=== PATIENT | female | born 1970 | race Caucasian/White ===

== ENCOUNTER 2017-02-22 14:16 | Emergency (ER) | payer OTHER ==
[~2017-02-22] VITALS: Ht 167.6 cm; Wt 116.6 kg
[~2017-02-22 14:16] MED LIST: CLIN1CAP5 PO; MMW SSP
[2017-02-22 14:25] VITALS: BP 166/81; PULSE 89; RESP 16; TEMP 97.2; O2SAT 97
[2017-02-22] MEDS ORDERED: MORPHINE SULFATE 4 MG/ML INJ IV PUSH ONE (18:30)
[2017-02-22] MEDS ORDERED: SODIUM CHLORIDE 0.9% FLUSH 10 ML FLUSH IV FLUSH PRN (18:30)
--- NOTE | 2017-02-22 18:31 | PD ---
HPI Chief Complaint: Abdominal Pain Time Seen by Provider: 17:55 Travel History International Travel<30 days: No Contact w/Intl Traveler<30days: No Traveled to known affect area: No History of Present Illness HPI 46yo F with PMH of endometriosis s/p partial hysterectomy presents to the ED with c/o right lower abdominal pain since 1:30pm today. Said it was sharp and then less sharp but constant and nonradiating. Has history of kidney stone years ago. Denies any fever, chest pain, sob, n/v, dysuria, hematuria, vaginal bleeding or discharge, focal weakness or numbness. PFSH Past Medical History Atrial Fibrillation: No Blood Disorders: No Cerebrovascular Accident: No Diabetes: No Diminished Hearing: No Gastrointestinal Disorders: No Immune Disorder: No Migraines: Yes Myocardial Infarction: No Renal Failure: No Seizures: No Ulcer: No Past Surgical History Gynecologic Surgery: Yes (PARTIAL HYSTERECTOMY) Hysterectomy: Yes Social History Alcohol Use: Yes (OCCAS) Tobacco Use: Yes (1/2 PPD) Substance Use: No Allergies-Medications (Allergen,Severity, Reaction): Coded Allergies: No Known Allergies (Verified Adverse Reaction, Unknown, 02/22/17) Reported Meds & Prescriptions Reported Meds & Active Scripts Active Cipro (Ciprofloxacin HCl) 500 Mg Tab 500 Mg PO BID 7 Days Flagyl (Metronidazole) 500 Mg Tab 500 Mg PO TID 7 Days Review of Systems Except as stated in HPI: all other systems reviewed are Neg Physical Exam Narrative GENERAL: 46yo F in mild distress. SKIN: Focused skin assessment warm/dry. HEAD: Atraumatic. Normocephalic. EYES: Pupils equal and round. No scleral icterus. No injection or drainage. CARDIOVASCULAR: Regular rate and rhythm. No murmur appreciated. RESPIRATORY: No accessory muscle use. Clear to auscultation. Breath sounds equal bilaterally. GASTROINTESTINAL: Abdomen soft, +RLQ ttp. No rebound tenderness or guarding. MUSCULOSKELETAL: No obvious deformities. No clubbing. No cyanosis. No edema. NEUROLOGICAL: Awake and alert. No obvious cranial nerve deficits. Motor grossly within normal limits. Normal speech. PSYCHIATRIC: Appropriate mood and affect; insight and judgment normal. Data Data Last Documented VS Vital Signs Date Time Temp Pulse Resp B/P (MAP) Pulse Ox O2 Delivery O2 Flow Rate FiO2 02/22/17 23:03 82 18 97 02/22/17 23:01 Room Air 02/22/17 14:25 97.2 Orders Orders Complete Blood Count With Diff (02/22/17 18:24) Comprehensive Metabolic Panel (02/22/17 18:24) Lipase (02/22/17 18:24) Prothrombin Time / Inr (Pt) (02/22/17 18:24) Act Partial Throm Time (Ptt) (02/22/17 18:24) Urinalysis - C+S If Indicated (02/22/17 18:24) Ct Abd/Pel W Iv Contrast(Rout) (02/22/17 18:24) Iv Access Insert/Monitor (02/22/17 18:24) Ecg Monitoring (02/22/17 18:24) Oximetry (02/22/17 18:24) Sodium Chloride 0.9% Flush (Ns Flush) (02/22/17 18:30) Ed Urine Pregnancytest Poc (02/22/17 18:24) Morphine Inj (Morphine Inj) (02/22/17 18:30) Iohexol 350 Inj (Omnipaque 350 Inj) (02/22/17 18:45) Us Pelvis Comp W Dop Transvag (02/22/17 ) Amoxicil-Clavulanate (Augmentin) (02/22/17 19:30) Metronidazole (Flagyl) (02/22/17 19:30) Ed Discharge Order (02/22/17 22:37) Labs Laboratory Tests Test 02/22/17 18:17 02/22/17 19:00 White Blood Count 11.0 TH/MM3 Red Blood Count 5.10 MIL/MM3 Hemoglobin 14.4 GM/DL Hematocrit 42.4 % Mean Corpuscular Volume 83.1 FL Mean Corpuscular Hemoglobin 28.2 PG Mean Corpuscular Hemoglobin Concent 33.9 % Red Cell Distribution Width 13.4 % Platelet Count 310 TH/MM3 Mean Platelet Volume 8.6 FL Neutrophils (%) (Auto) 74.1 % Lymphocytes (%) (Auto) 19.2 % Monocytes (%) (Auto) 2.6 % Eosinophils (%) (Auto) 1.4 % Basophils (%) (Auto) 2.7 % Neutrophils # (Auto) 8.1 TH/MM3 Lymphocytes # (Auto) 2.1 TH/MM3 Monocytes # (Auto) 0.3 TH/MM3 Eosinophils # (Auto) 0.2 TH/MM3 Basophils # (Auto) 0.3 TH/MM3 CBC Comment DIFF FINAL Differential Comment Prothrombin Time 9.5 SEC Prothromb Time International Ratio 0.9 RATIO Activated Partial Thromboplast Time 28.7 SEC Blood Urea Nitrogen 11 MG/DL Creatinine 0.75 MG/DL Random Glucose 136 MG/DL Total Protein 6.9 GM/DL Albumin 3.3 GM/DL Calcium Level 8.3 MG/DL Alkaline Phosphatase 80 U/L Aspartate Amino Transf (AST/SGOT) 25 U/L Alanine Aminotransferase (ALT/SGPT) 26 U/L Total Bilirubin 0.4 MG/DL Sodium Level 137 MEQ/L Potassium Level 4.1 MEQ/L Chloride Level 105 MEQ/L Carbon Dioxide Level 26.8 MEQ/L Anion Gap 5 MEQ/L Estimat Glomerular Filtration Rate 83 ML/MIN Lipase 155 U/L Urine Collection Type VOIDED Urine Color YELLOW Urine Turbidity HAZY Urine pH 5.5 Urine Specific [place] 1.033 Urine Protein NEG mg/dL Urine Glucose (UA) NEG mg/dL Urine Ketones NEG mg/dL Urine Occult Blood NEG Urine Nitrite NEG Urine Bilirubin NEG Urine Leukocyte Esterase NEG Urine RBC 0-3 /hpf Urine WBC 3-5 /hpf Urine Squamous Epithelial Cells > 8 /hpf Urine Bacteria FEW /hpf Urine Trichomonas FEW Microscopic Urinalysis Comment CULT NOT INDICATED Urine Collection Time 1900 [facility] Medical Decision Making Medical Screen Exam Complete: Yes Emergency Medical Condition: Yes Differential Diagnosis Appendicitis vs. nephrolithiasis vs. colitis vs. ovarian cyst vs. ovarian torsion Narrative Course 46yo F with right lower abdominal pain since 1:30pm. Sudden onset. Will do labs, UA, CT a/p to r/o appendicitis. Pt given morphine for pain. Labs reviewed, no leukocytosis. CMP unremarkable. CT a/p showed circumferential mural thickening of terminal ileum most characteristic of a terminal ileitis. Bilateral adnexal lesions measuring 7.5cm on right and 3.6cm on left most characteristic of ovarian cysts. Since pain is sudden onset and has large right ovarian cyst, will do ultrasound to r/o ovarian torsion as well. If that is negative, pt can follow up as outpatient with oral antibiotics. First dose given. Sign out to next team to follow up US. Urine and UA pending as well. Diagnosis Primary Impression: Ileitis Scripts Ciprofloxacin (Cipro) 500 Mg Tab 500 MG PO BID for Infection for 7 Days, #14 TAB 0 Refills Prov: Fifi Bae MD 02/22/17 Metronidazole (Flagyl) 500 Mg Tab 500 MG PO TID for Infection for 7 Days, TAB 0 Refills Prov: Fifi Bae MD 02/22/17 Nivia Laird DO Feb 22, 2017 18:31
[2017-02-22 18:44] LABS: AUTOMATED NEUTROPHIL # 8.1 TH/MM3 (1.8-7.7); BASOPHIL # 0.3 TH/MM3 (0-0.2); BASOPHIL % 2.7 % (0.0-2.0); EOSINOPHIL # 0.2 TH/MM3 (0-0.4); EOSINOPHIL % 1.4 % (0.0-4.0); HEMATOCRIT 42.4 % (35.0-46.0); HEMO FLAGS DIFF FINAL; LYMPH % 19.2 % (9.0-44.0); LYMPHOCYTE # 2.1 TH/MM3 (1.0-4.8); MEAN CELL VOLUME 83.1 FL (80.0-100.0); MEAN CORPUSCULAR HEMOGLOBIN 28.2 PG (27.0-34.0); MEAN CORPUSCULAR HGB CONC 33.9 % (32.0-36.0); MONO % 2.6 % (0.0-8.0); NEUT % 74.1 % (16.0-70.0); PLATELET COUNT 310 TH/MM3 (150-450); RED CELL DISTRIBUTION WIDTH 13.4 % (11.6-17.2)
[2017-02-22] MEDS ORDERED: IOHEXOL 350 MG/ML 10 ML VIAL (for RAD DIAG) IVCONTRAST ONE (18:45)
[2017-02-22 18:50] LABS: CHLORIDE 105 MEQ/L (98-107); SODIUM (NA) 137 MEQ/L (136-145)
[2017-02-22 18:52] LABS: POTASSIUM 4.1 MEQ/L (3.5-5.1)
[2017-02-22 18:54] LABS: ANION GAP 5 MEQ/L (5-15); APTT (PATIENT) 28.7 SEC (24.3-30.1); BICARBONATE 26.8 MEQ/L (21.0-32.0); BLOOD UREA NITROGEN 11 MG/DL (7-18); INTERNATIONAL NORMALIZED RATIO 0.9 RATIO; PROTHROMBIN TIME - PATIENT 9.5 SEC (9.8-11.6)
[2017-02-22 18:57] LABS: ALT (GPT) 26 U/L (10-53); AST (GOT) 25 U/L (15-37); GLOMERULAR FILTRATION RATE 83 ML/MIN (>89)
[2017-02-22 18:58] LABS: TOTAL BILIRUBIN ADULT 0.4 MG/DL (0.2-1.0)
[2017-02-22 18:59] LABS: ALKALINE PHOSPHATASE 80 U/L (45-117)
--- NOTE | 2017-02-22 19:01 | RADRPT ---
EXAM DATE/TIME: 02/22/2017 18:38 [facility] COMPARISON: No previous studies available for comparison. INDICATIONS : Right lower quadrant pain. IV CONTRAST: 85 cc Omnipaque 350 (iohexol) IV ORAL CONTRAST: No oral contrast ingested. RADIATION DOSE: 21.69 CTDIvol (mGy) MEDICAL HISTORY : None SURGICAL HISTORY : Partial hysterectomy. ENCOUNTER: Initial ACUITY: 1 day PAIN SCALE: 6/10 LOCATION: Right lower quadrant TECHNIQUE: Volumetric scanning of the abdomen and pelvis was performed. Using automated exposure control and ad justment of the mA and/or kV according to patient size, radiation dose was kept as low as reasonably achievable to obtain optimal diagnostic quality images. DICOM format image data is available electro nically for review and comparison. FINDINGS: There is mural thickening of the terminal ileum extending over a length of at least 10 cm with some m ild dilatation of bowel proximal mural thickening. Findings are most characteristic of a terminal ile itis. Appendix has normal caliber. No acute finding at the lung bases. Liver unremarkable. Small splenic cyst or hemangioma. Adrenals, k idneys and pancreas unremarkable. No calcified gallstones. No free fluid. No bowel obstruction. No adenopathy. Examination of the pelvis reveals a 7.5 cm right adnexal lesion most characteristic of an ovarian cyst. There is also a suspected 3.6 cm left ovarian cyst. No pelvic free fluid. CONCLUSION: 1. Circumferential mural thickening of the terminal ileum most characteristic of a terminal ileitis. Primary differential diagnosis is inflammatory bowel disease/Crohn's disease. 2. Bilateral adnexal lesions measuring up to 7.5 cm on the right and 3.6 cm on the left most characte ristic of ovarian cysts 3. Appendix normal caliber. Grover Vo MD on February 22, 2017 at 18:55 Board Certified Radiologist. This report was verified electronically.
[2017-02-22 19:17] VITALS: O2SAT 97
[2017-02-22 19:18] VITALS: BP 118/72; PULSE 85; RESP 18; O2SAT 97
[2017-02-22 19:21] LABS: BLOOD, URINE NEG (NEG); GLUCOSE,URINE NEG (NEG); KETONE, URINE NEG (NEG); NITRITE,URINE NEG (NEG); PH, URINE 5.5 (5.0-8.5)
[2017-02-22] MEDS ORDERED: AMOXICILLIN/CLAVULANATE K 875 MG TAB PO ONE (19:30)
[2017-02-22] MEDS ORDERED: metroNIDAZOLE 500 MG TAB PO ONE (19:30)
--- NOTE | 2017-02-22 19:36 | PD ---
Physical Exam Date Seen by Provider: Feb 22, 2017 Time Seen by Provider: 19:35 Narrative Accepted in transfer of care from Dr. Laird Well-developed well-nourished female in no acute distress no respiratory distress resting comfortably on the side of the bed waiting for lab results Data Data Last Documented VS Vital Signs Date Time Temp Pulse Resp B/P (MAP) Pulse Ox O2 Delivery O2 Flow Rate FiO2 02/22/17 21:54 85 18 152/85 (107) 97 Room Air 02/22/17 14:25 97.2 Orders Orders Complete Blood Count With Diff (02/22/17 18:24) Comprehensive Metabolic Panel (02/22/17 18:24) Lipase (02/22/17 18:24) Prothrombin Time / Inr (Pt) (02/22/17 18:24) Act Partial Throm Time (Ptt) (02/22/17 18:24) Urinalysis - C+S If Indicated (02/22/17 18:24) Ct Abd/Pel W Iv Contrast(Rout) (02/22/17 18:24) Iv Access Insert/Monitor (02/22/17 18:24) Ecg Monitoring (02/22/17 18:24) Oximetry (02/22/17 18:24) Sodium Chloride 0.9% Flush (Ns Flush) (02/22/17 18:30) Ed Urine Pregnancytest Poc (02/22/17 18:24) Morphine Inj (Morphine Inj) (02/22/17 18:30) Iohexol 350 Inj (Omnipaque 350 Inj) (02/22/17 18:45) Us Pelvis Comp W Dop Transvag (02/22/17 ) Amoxicil-Clavulanate (Augmentin) (02/22/17 19:30) Metronidazole (Flagyl) (02/22/17 19:30) Ed Discharge Order (02/22/17 22:37) Labs Laboratory Tests Test 02/22/17 18:17 02/22/17 19:00 White Blood Count 11.0 TH/MM3 Red Blood Count 5.10 MIL/MM3 Hemoglobin 14.4 GM/DL Hematocrit 42.4 % Mean Corpuscular Volume 83.1 FL Mean Corpuscular Hemoglobin 28.2 PG Mean Corpuscular Hemoglobin Concent 33.9 % Red Cell Distribution Width 13.4 % Platelet Count 310 TH/MM3 Mean Platelet Volume 8.6 FL Neutrophils (%) (Auto) 74.1 % Lymphocytes (%) (Auto) 19.2 % Monocytes (%) (Auto) 2.6 % Eosinophils (%) (Auto) 1.4 % Basophils (%) (Auto) 2.7 % Neutrophils # (Auto) 8.1 TH/MM3 Lymphocytes # (Auto) 2.1 TH/MM3 Monocytes # (Auto) 0.3 TH/MM3 Eosinophils # (Auto) 0.2 TH/MM3 Basophils # (Auto) 0.3 TH/MM3 CBC Comment DIFF FINAL Differential Comment Prothrombin Time 9.5 SEC Prothromb Time International Ratio 0.9 RATIO Activated Partial Thromboplast Time 28.7 SEC Blood Urea Nitrogen 11 MG/DL Creatinine 0.75 MG/DL Random Glucose 136 MG/DL Total Protein 6.9 GM/DL Albumin 3.3 GM/DL Calcium Level 8.3 MG/DL Alkaline Phosphatase 80 U/L Aspartate Amino Transf (AST/SGOT) 25 U/L Alanine Aminotransferase (ALT/SGPT) 26 U/L Total Bilirubin 0.4 MG/DL Sodium Level 137 MEQ/L Potassium Level 4.1 MEQ/L Chloride Level 105 MEQ/L Carbon Dioxide Level 26.8 MEQ/L Anion Gap 5 MEQ/L Estimat Glomerular Filtration Rate 83 ML/MIN Lipase 155 U/L Urine Collection Type VOIDED Urine Color YELLOW Urine Turbidity HAZY Urine pH 5.5 Urine Specific [place] 1.033 Urine Protein NEG mg/dL Urine Glucose (UA) NEG mg/dL Urine Ketones NEG mg/dL Urine Occult Blood NEG Urine Nitrite NEG Urine Bilirubin NEG Urine Leukocyte Esterase NEG Urine RBC 0-3 /hpf Urine WBC 3-5 /hpf Urine Squamous Epithelial Cells > 8 /hpf Urine Bacteria FEW /hpf Urine Trichomonas FEW Microscopic Urinalysis Comment CULT NOT INDICATED Urine Collection Time 1900 [facility] Medical Record Reviewed: Yes Supervised Visit with AKILA: No Interpretation(s) Last Impressions Abdomen/Pelvis CT 02/22/17 1824 Signed Impressions: Service Date/Time: Wednesday, February 22, 2017 18:38 - CONCLUSION: 1. Circumferential mural thickening of the terminal ileum most characteristic of a terminal ileitis. Primary differential diagnosis is inflammatory bowel disease/Crohn's disease. 2. Bilateral adnexal lesions measuring up to 7.5 cm on the right and 3.6 cm on the left most characteristic of ovarian cysts 3. Appendix normal caliber. Grover Vo MD Abdomen/Pelvis/Transvag US 02/22/17 0000 Signed Impressions: Service Date/Time: Wednesday, February 22, 2017 20:10 - CONCLUSION: 1. 6.6 cm right ovarian cyst. 2. 3.1 cm left ovarian cyst. 3. Trace free fluid near right ovary. Grover Vo MD CBC & BMP Diagram 02/22/17 18:17 Total Protein 6.9, Albumin 3.3 L, Calcium Level 8.3 L, Alkaline Phosphatase 80, Aspartate Amino Transf (AST/SGOT) 25, Alanine Aminotransferase (ALT/SGPT) 26, Total Bilirubin 0.4 Differential Diagnosis Accepted in transfer of care from Dr. Laird; please refer to her dictation Narrative Course Accepted in transfer of care from Dr. Laird; for follow-up of pending ultrasound and patient disposition The patient informed of all lab results as well as imaging results CT abdomen and pelvis and ultrasound of the pelvis with addendum report that patient does have bilateral ovarian cysts with good blood flow to both since no evidence of torsion. Patient is comfortable voicing no concerns or complaints is aware of imaging results and lab results in stable for outpatient management. 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 Diagnosis Primary Impression: Ileitis Additional Impression: Ovarian cyst Qualified Codes: N83.201 - Unspecified ovarian cyst, right side; N83.202 - Unspecified ovarian cyst, left side Referrals: Bundle Helper 3 days Primary Care Physician 3 days Patient Instructions: General Instructions, Narcotic given in the ED Additional Instruction: Follow-up with your primary care provider Follow-up with motor route carrier Return to the emergency department for any concerns or change in condition Increase fluid hydration May take ibuprofen/Advil/Motrin 600 mg every 6 6 hours or 800 mg as often as every 8 hours as needed for fever 100.4F or greater or for pain associated with inflammation Return to the emergency department for any concerns or change in condition Complete course of antibiotic as prescribed May take acetaminophen/Tylenol as needed for fever 100.4F or greater Med/Other Pt SpecificInfo: Prescription(s) given Scripts Ciprofloxacin (Cipro) 500 Mg Tab 500 MG PO BID for Infection for 7 Days, #14 TAB 0 Refills Prov: Fifi Bae MD 02/22/17 Metronidazole (Flagyl) 500 Mg Tab 500 MG PO TID for Infection for 7 Days, TAB 0 Refills Prov: Fifi Bae MD 02/22/17 Disposition: 01 DISCHARGE HOME Condition: Stable Fifi Bae MD Feb 22, 2017 19:36
[2017-02-22 19:39] LABS: METHOD OF COLLECTION VOIDED
[2017-02-22 19:40] LABS: BACTERIA, URINE FEW /hpf; COMMENT (UR) CULT NOT INDICATED; CULTURE IF INDICATED CULT NOT INDICATED; RBC, URINE 0-3 /hpf (0-3); SQUAMOUS EPITHELIAL CELL URINE > 8 /hpf (0-5); URINE COLOR YELLOW (YELLW/STRAW)
[2017-02-22 20:59] VITALS: BP 147/74; PULSE 82; RESP 18; O2SAT 97
--- NOTE | 2017-02-22 21:19 | RADRPT ---
EXAM DATE/TIME: 02/22/2017 20:10 This report includes an Addendum and supersedes previous reports for this exam. [facility] COMPARISON: No previous studies available for comparison. INDICATIONS : Right lower quadrant pain. MEDICAL HISTORY : Migraine. Alcohol use. Tobacco use. SURGICAL HISTORY : Partial hysterectomy. ENCOUNTER: Initial ACUITY: 1 day PAIN SCORE: 9/10 LOCATION: Bilateral pelvis MEASUREMENTS: UTERUS: Surgically absent RIGHT OVARY: 8.3 x 7.2 x 8.1 cm LEFT OVARY: 3.6 x 2.8 x 3.0 cm FINDINGS: Postoperative partial hysterectomy. Large right ovarian cyst measuring up to 6.6 x 7.2 cm. Smaller le ft ovarian cyst measuring up to 3.1 cm in diameter. Small amount of free fluid present adjacent to th e right ovary. CONCLUSION: 1. 6.6 cm right ovarian cyst. 2. 3.1 cm left ovarian cyst. 3. Trace free fluid near right ovary. Grover Vo MD on February 22, 2017 at 21:15 Board Certified Radiologist. This report was verified electronically. ADDENDUM: There is documented Doppler blood flow to both ovaries. No evidence for torsion. Grover Vo MD on February 22, 2017 at 22:30 Board Certified Radiologist. This report was verified electronically.
[2017-02-22 21:54] VITALS: BP 152/85; PULSE 85; RESP 18; O2SAT 97
[2017-02-22] MEDS ORDERED: METR-1 PO (22:18)
[2017-02-22] MEDS ORDERED: CIPR-9 PO (22:21)
[2017-02-22 23:01] VITALS: BP 148/82; PULSE 82; RESP 18; O2SAT 97
== END 2017-02-22 23:04 | disposition home or self-care (01) ==
LOC: PHED 14:16
DX: K52.9 Noninfective gastroenteritis and colitis, unspecified (principal); N83.201 Unspecified ovarian cyst, right side; N83.202 Unspecified ovarian cyst, left side; F17.200 Nicotine dependence, unspecified, uncomplicated; Z87.442 Personal history of urinary calculi; Z86.69 Personal history of other diseases of the nervous system and sense organs
CPT/HCPCS: 74177; 76830; 76856; 80053; 81001; 83690; 84703; 85025; 85610; 85730; 93975; 96374; 99285; J2270; Q9967

== ENCOUNTER 2017-07-17 09:20 | Observation (INO) | payer OTHER ==
[~2017-07-17] VITALS: Ht 167.6 cm; Wt 120.0 kg
[2017-07-17] VITALS (11 sets, daily range): BP systolic 131–173; BP diastolic 68–92; PULSE 63–95; RESP 15–20; TEMP 96.7–98.4; O2SAT 91–98
[~2017-07-17 09:20] MED LIST changes: +CIPR-9 PO; -CLIN1CAP5 PO; +METR-1 PO; -MMW SSP
--- NOTE | 2017-07-17 09:35 | PD ---
HPI Chief Complaint: Chest pain Time Seen by Provider: 09:23 Travel History International Travel<30 days: No Contact w/Intl Traveler<30days: No Traveled to known affect area: No History of Present Illness HPI This 46-year-old female says she woke up around midnight last night with some chest pain. Since then the pain has been coming and going. She says is like a pressure. It does seem a bit worse when she lays back. She is not short of breath. She has no history of heart disease. She does smoke. Her father of an [place] at the age of 48. She has no hypertension or diabetes. There is no radiation of the pain. She is not short of breath. She did do some physical labor yesterday helping her for some move but does not think she injured herself [facility] Past Medical History Atrial Fibrillation: No Blood Disorders: No Cerebrovascular Accident: No Diabetes: No Diminished Hearing: No Gastrointestinal Disorders: No Immune Disorder: No Migraines: Yes Myocardial Infarction: No Renal Failure: No Seizures: No Ulcer: No Past Surgical History Gynecologic Surgery: Yes (PARTIAL HYSTERECTOMY) Hysterectomy: Yes Social History Alcohol Use: Yes (OCCAS) Tobacco Use: Yes (/2 PPD) Substance Use: No Allergies-Medications (Allergen,Severity, Reaction): Coded Allergies: No Known Allergies (Verified Allergy, Unknown, 07/17/17) Reported Meds & Prescriptions Reported Meds & Active Scripts Active Cipro (Ciprofloxacin HCl) 500 Mg Tab 500 Mg PO BID 7 Days Flagyl (Metronidazole) 500 Mg Tab 500 Mg PO TID 7 Days Review of Systems Except as stated in HPI: all other systems reviewed are Neg General / Constitutional: No: Fever, Chills Eyes: No: Diploplia, Blurred Vision HENT: No: Headaches, Vertigo Cardiovascular: Positive: Chest Pain or Discomfort, No: Palpitations Respiratory: No: Cough, Shortness of Breath Genitourinary: No: Urgency Musculoskeletal: No: Myalgias Neurologic: No: Weakness, Dizziness Endocrine: No: Cold Intolerance Hematologic/Lymphatic: No: Easy Bruising Physical Exam Narrative GENERAL: Female SKIN: Focused skin assessment warm/dry. HEAD: Atraumatic. Normocephalic. EYES: Pupils equal and round. No scleral icterus. No injection or drainage. ENT: No nasal bleeding or discharge. Mucous membranes pink and moist. NECK: Trachea midline. No JVD. CARDIOVASCULAR: Regular rate and rhythm. No murmur appreciated. No chest wall tenderness RESPIRATORY: No accessory muscle use. Clear to auscultation. Breath sounds equal bilaterally. GASTROINTESTINAL: Abdomen soft, non-tender, nondistended. Hepatic and splenic margins not palpable. MUSCULOSKELETAL: No obvious deformities. No clubbing. No cyanosis. No edema. NEUROLOGICAL: Awake and alert. No obvious cranial nerve deficits. Motor grossly within normal limits. Normal speech. PSYCHIATRIC: Appropriate mood and affect; insight and judgment normal. Data Data Last Documented VS Vital Signs Date Time Temp Pulse Resp B/P (MAP) Pulse Ox O2 Delivery O2 Flow Rate FiO2 07/17/17 11:30 16 07/17/17 11:08 80 159/76 (103) 97 Room Air 07/17/17 09:38 98.4 Orders Orders Basic Metabolic Panel (Bmp) (07/17/17 09:31) Complete Blood Count With Diff (07/17/17 09:31) Magnesium (Mg) (07/17/17 09:31) Prothrombin Time / Inr (Pt) (07/17/17 09:31) Act Partial Throm Time (Ptt) (07/17/17 09:31) Troponin I (07/17/17 09:31) Chest, Single Ap (07/17/17 09:31) Ecg Monitoring (07/17/17 09:31) Bilateral Bp Monitoring (07/17/17 09:31) Iv Access Insert/Monitor (07/17/17 09:31) Oximetry (07/17/17 09:31) Oxygen Administration (07/17/17 09:31) Aspirin Chew (Aspirin Chew) (07/17/17 09:45) Sodium Chloride 0.9% Flush (Ns Flush) (07/17/17 09:45) Al-Mag Hy-Si 40-40-4 Mg/Ml Liq (Mag-Al P (07/17/17 09:45) Electrocardiogram (07/17/17 09:27) D-Dimer (07/17/17 10:51) Ondansetron Inj (Zofran Inj) (07/17/17 11:00) Morphine Inj (Morphine Inj) (07/17/17 11:00) Admit Order (Ed Use Only) (07/17/17 12:09) Labs Laboratory Tests Test 07/17/17 09:44 07/17/17 11:00 White Blood Count 11.1 TH/MM3 Red Blood Count 5.18 MIL/MM3 Hemoglobin 14.4 GM/DL Hematocrit 43.1 % Mean Corpuscular Volume 83.2 FL Mean Corpuscular Hemoglobin 27.9 PG Mean Corpuscular Hemoglobin Concent 33.5 % Red Cell Distribution Width 13.5 % Platelet Count 333 TH/MM3 Mean Platelet Volume 7.8 FL Neutrophils (%) (Auto) 75.6 % Lymphocytes (%) (Auto) 18.1 % Monocytes (%) (Auto) 3.1 % Eosinophils (%) (Auto) 1.5 % Basophils (%) (Auto) 1.7 % Neutrophils # (Auto) 8.4 TH/MM3 Lymphocytes # (Auto) 2.0 TH/MM3 Monocytes # (Auto) 0.3 TH/MM3 Eosinophils # (Auto) 0.2 TH/MM3 Basophils # (Auto) 0.2 TH/MM3 CBC Comment DIFF FINAL Differential Comment Prothrombin Time 9.3 SEC Prothromb Time International Ratio 0.9 RATIO Activated Partial Thromboplast Time 27.2 SEC Blood Urea Nitrogen 13 MG/DL Creatinine 0.99 MG/DL Random Glucose 129 MG/DL Calcium Level 8.9 MG/DL Magnesium Level 2.2 MG/DL Sodium Level 142 MEQ/L Potassium Level 3.8 MEQ/L Chloride Level 110 MEQ/L Carbon Dioxide Level 25.6 MEQ/L Anion Gap 6 MEQ/L Estimat Glomerular Filtration Rate 60 ML/MIN Troponin I LESS THAN 0.02 NG/ML D-Dimer Quantitative (PE/DVT) 0.22 MG/L [facility] Medical Decision Making Medical Screen Exam Complete: Yes Emergency Medical Condition: Yes Medical Record Reviewed: Yes Differential Diagnosis Differential includes coronary artery disease, GERD, atypical chest pain Narrative Course EKG shows normal sinus rhythm. Chest x-ray is negative. Troponin is less than 0.02. I went to reevaluate the patient in a more pleuritic pain at this time. I have ordered a d-dimer other assess for pulmonary embolus. The d-dimer is negative. Patient will be admitted to chest pain center Diagnosis Primary Impression: Chest pain Admitting Information Admitting Physician Requests: Observation Sandip So MD Jul 17, 2017 09:35
[2017-07-17] MEDS ORDERED: ALUMINUM/MAGNESIUM/SIMETH 30 ML CUP PO ONE (09:45)
[2017-07-17] MEDS ORDERED: ASPIRIN 81 MG CHEW TAB PO ONE (09:45)
[2017-07-17] MEDS ORDERED: SODIUM CHLORIDE 0.9% FLUSH 10 ML FLUSH IVF PRN (09:45)
[2017-07-17 09:53] LABS: AUTOMATED NEUTROPHIL # 8.4 TH/MM3 (1.8-7.7); BASOPHIL # 0.2 TH/MM3 (0-0.2); BASOPHIL % 1.7 % (0.0-2.0); EOSINOPHIL # 0.2 TH/MM3 (0-0.4); EOSINOPHIL % 1.5 % (0.0-4.0); HEMATOCRIT 43.1 % (35.0-46.0); HEMOGLOBIN 14.4 GM/DL (11.6-15.3); LYMPH % 18.1 % (9.0-44.0); MEAN CELL VOLUME 83.2 FL (80.0-100.0); MEAN CORPUSCULAR HEMOGLOBIN 27.9 PG (27.0-34.0); MEAN CORPUSCULAR HGB CONC 33.5 % (32.0-36.0); MEAN PLATELET VOLUME 7.8 FL (7.0-11.0); MONO % 3.1 % (0.0-8.0); MONOCYTE # 0.3 TH/MM3 (0-0.9); NEUT % 75.6 % (16.0-70.0); PLATELET COUNT 333 TH/MM3 (150-450); RED BLOOD COUNT 5.18 MIL/MM3 (4.00-5.30); RED CELL DISTRIBUTION WIDTH 13.5 % (11.6-17.2); WHITE BLOOD COUNT 11.1 TH/MM3 (4.0-11.0)
[2017-07-17 10:02] LABS: CHLORIDE 110 MEQ/L (98-107); SODIUM (NA) 142 MEQ/L (136-145)
[2017-07-17 10:05] LABS: BICARBONATE 25.6 MEQ/L (21.0-32.0); CALCIUM 8.9 MG/DL (8.5-10.1); GLUCOSE,RANDOM 129 MG/DL (74-106); MAGNESIUM 2.2 MG/DL (1.5-2.5)
[2017-07-17 10:06] LABS: BLOOD UREA NITROGEN 13 MG/DL (7-18)
[2017-07-17 10:09] LABS: CREATININE 0.99 MG/DL (0.50-1.00); GLOMERULAR FILTRATION RATE 60 ML/MIN (>89)
[2017-07-17 10:14] LABS: TROPONIN I LESS THAN 0.02 NG/ML (0.02-0.05)
--- NOTE | 2017-07-17 10:24 | RADRPT ---
EXAM DATE/TIME: 07/17/2017 09:52 [facility] COMPARISON: No previous studies available for comparison. INDICATIONS : Substernal chest pain. MEDICAL HISTORY : None. SURGICAL HISTORY : Hysterectomy. ENCOUNTER: Initial ACUITY: 1 day PAIN SCORE: 8/10 LOCATION: chest FINDINGS: A single view of the chest demonstrates the lungs to be symmetrically aerated without evidence of mas s, infiltrate or effusion. The cardiomediastinal contours are unremarkable. Osseous structures are intact. CONCLUSION: Normal examination. Eddy Richardson MD on July 17, 2017 at 10:21 Board Certified Radiologist. This report was verified electronically.
[2017-07-17 10:31] LABS: INTERNATIONAL NORMALIZED RATIO 0.9 RATIO; PROTHROMBIN TIME - PATIENT 9.3 SEC (9.8-11.6)
[2017-07-17] MEDS ORDERED: ONDANSETRON HCL 4 MG/2 ML VIAL IV PUSH ONE ×2 (11:00→12:00)
[2017-07-17] MEDS ORDERED: MORPHINE SULFATE 4 MG/ML INJ IV PUSH ONE (11:00)
[2017-07-17] MEDS ORDERED: DEXAMETHASONE SOD PHOS 4 MG/ML VIAL IV ONE (12:00)
[2017-07-17] MEDS ORDERED: ROCURONIUM INJ 50 MG/5 ML SYRINGE IV PUSH ONE (12:00)
[2017-07-17] MEDS ORDERED: LIDOCAINE HCL 1% PF 5 ML SYRINGE OTHER ONE (12:00)
[2017-07-17] MEDS ORDERED: PROPOFOL 200 MG/20 ML AMP IV ONE (12:00)
[2017-07-17] MEDS ORDERED: ceFAZolin INJ 1,000 MG VIAL IV ONE (12:00)
--- NOTE | 2017-07-17 12:17 | EKG ---
Date Performed: 07/17/2017 Time Performed: 09:27:56 PTAGE: 46 years EKG: Sinus rhythm NORMAL ECG NO PREVIOUS TRACING DOCTOR: Eddy Ward Interpretating Date/Time 07/17/2017 12:17:03
[2017-07-17] MEDS ORDERED: ACETAMINOPHEN/HYDROcodone 325 MG/7.5 MG TAB PO PRN (12:30)
[2017-07-17] MEDS ORDERED: NITROGLYCERIN 0.4 MG SL 25 TABS/BTL SL PRN (12:30)
[2017-07-17] MEDS ORDERED: ONDANSETRON HCL 4 MG/2 ML VIAL IV PUSH PRN (12:30)
[2017-07-17] MEDS ORDERED: MORPHINE SULFATE 4 MG/ML INJ IV PUSH PRN (12:30)
[2017-07-17] MEDS ORDERED: SODIUM CHLORIDE 0.9% FLUSH 10 ML FLUSH IV FLUSH PRN (12:30)
[2017-07-17] MEDS ORDERED: ACETAMINOPHEN 500 MG CPLT PO PRN (12:30)
[2017-07-17] MEDS ORDERED: cloNIDine HCL 0.1 MG TAB PO PRN (13:00)
[2017-07-17] MEDS ORDERED: ENALAPRILAT 1.25 MG/ML VIAL IV PUSH PRN (13:00)
--- NOTE | 2017-07-17 13:11 | HHI.HP ---
HPI Service [facility] Primary Care Physician No Primary Care Physician Admission Diagnosis CHEST PAIN Diagnoses: (1) Chest pain Diagnosis: Principal Chief Complaint: Chest pain Travel History International Travel<30 Days: No Contact w/Intl Traveler <30 Da: No Traveled to Known Affected Are: No History of Present Illness 46-year-old female with no chronic medical illnesses who presented to the hospital because of chest pain that has been ongoing since 12 last night. Patient states that approximately 12 midnight she started developing a constant dull ache in the middle part of her chest which was a 2/10 on a pain scale. When she woke up this morning it was a 6/10 on a pain scale at approximately 8 AM. And the pain continued to get worse where she describes it as a ton of bricks on her chest until she came to the ER which was 10/10 on a pain scale. Patient was given aspirin and morphine in the emergency department with relief. But the pain has not gone away completely. She denied any nausea, vomiting, diaphoresis, lightheadedness, dizziness. She states that taking a deep breath makes the pain worse. She indicates the pain is midsternal region without any radiation to neck, back, shoulder, arm. Patient does not have a primary medical doctor and she has never undergone any cardiac workup. She does have family history of her father at age 48 from myocardial infarction. Because of those reasons is recommended by the ER physician the patient be observed in the chest pain center Once patient got to the medical floor patient started complaining of right flank pain and right inguinal pain. Patient does have history of renal lithiasis. Further workup will be ascertained to evaluate for kidney stone and possible obstruction. Review of Systems Cardiovascular: COMPLAINS OF: Chest pain Gastrointestinal: COMPLAINS OF: Abdominal pain Except as stated in HPI: all other systems reviewed are Neg Past Family Social History Past Medical History History of kidney stone Past Surgical History Partial hysterectomy 1997 Reported Medications Reported Meds & Active Scripts Active Cipro (Ciprofloxacin HCl) 500 Mg Tab 500 Mg PO BID 7 Days Flagyl (Metronidazole) 500 Mg Tab 500 Mg PO TID 7 Days Allergies: Coded Allergies: No Known Allergies (Verified Allergy, Unknown, 07/17/17) Family History Patient continues to smoke three-quarter pack of cigarettes a day since she is 15 years old. Drinks alcohol approximately 2 times a year. Denies any illicit drug Social History Father at age 48 from myocardial infarction. Mother still alive. Physical Exam Vital Signs Vital Signs Date Time Temp Pulse Resp B/P (MAP) Pulse Ox O2 Delivery O2 Flow Rate FiO2 07/17/17 12:41 87 18 173/85 (114) 98 Room Air 07/17/17 11:30 16 07/17/17 11:08 80 17 159/76 (103) 97 Room Air 07/17/17 10:14 149/77 (101) 151/68 (95) 07/17/17 09:49 98 Room Air 07/17/17 09:49 18 98 Room Air 07/17/17 09:45 18 98 Room Air 07/17/17 09:38 98.4 89 18 151/92 (111) 98 Physical Exam GENERAL: Well-developed, well-nourished, in no acute distress. alert and orientated HEENT: Head is normocephalic without any lesions or masses noted. Facial features are symmetric. Eyes: Pupils equal round reactive to light. Extraocular muscles are intact. Conjunctivae were clear. Oropharyngeal: Pharynx without any erythema edema. Tongue is midline without deviation. Buccal mucosa is moist without any masses or lesions NECK: Supple without any masses. Trachea midline no deviation. No JVD, no bruits are appreciated CARDIAC: Regular rhythm, regular rate. S1/S2 are heard. No murmurs gallops or rubs. Reproducible tenderness noted in the midsternal region. LUNGS: Clear to auscultation bilaterally. No wheeze, rhonchi or rales. No use of accessory muscles on inspiration or expiration. ABDOMEN: Soft, nontender. Nondistended. Bowel sounds heard in all 4 quadrants. No organomegaly or masses. Negative rebound, negative guarding EXTREMITIES: No edema, pulses are equal bilaterally. No cyanosis or clubbing NEUROLOGY: Mood and affect appear appropriate. Cranial nerves II through XII grossly intact. Muscle strength 5/5 in upper and lower extremities bilaterally. Deep tendon reflexes are 2+ in upper and lower extremities bilaterally. Laboratory Laboratory Tests Test 07/17/17 09:44 07/17/17 11:00 07/17/17 12:40 White Blood Count 11.1 Red Blood Count 5.18 Hemoglobin 14.4 Hematocrit 43.1 Mean Corpuscular Volume 83.2 Mean Corpuscular Hemoglobin 27.9 Mean Corpuscular Hemoglobin Concent 33.5 Red Cell Distribution Width 13.5 Platelet Count 333 Mean Platelet Volume 7.8 Neutrophils (%) (Auto) 75.6 Lymphocytes (%) (Auto) 18.1 Monocytes (%) (Auto) 3.1 Eosinophils (%) (Auto) 1.5 Basophils (%) (Auto) 1.7 Neutrophils # (Auto) 8.4 Lymphocytes # (Auto) 2.0 Monocytes # (Auto) 0.3 Eosinophils # (Auto) 0.2 Basophils # (Auto) 0.2 CBC Comment DIFF FINAL Differential Comment Prothrombin Time 9.3 Prothromb Time International Ratio 0.9 Activated Partial Thromboplast Time 27.2 Blood Urea Nitrogen 13 Creatinine 0.99 Random Glucose 129 Calcium Level 8.9 Magnesium Level 2.2 Sodium Level 142 Potassium Level 3.8 Chloride Level 110 Carbon Dioxide Level 25.6 Anion Gap 6 Estimat Glomerular Filtration Rate 60 Troponin I LESS THAN 0.02 D-Dimer Quantitative (PE/DVT) 0.22 Result Diagram: 07/17/1744 07/17/17943 Imaging Last Impressions Chest X-Ray 07/17/17930 Signed Impressions: Service Date/Time: Monday, July 17, 2017 09:52 - CONCLUSION: Normal examination. MD Liborio Quezada VTE Risk Assessment Liborio VTE Risk Assessment: No/Low Risk (score <= 1) Caprini Risk Assessment Model Point Value = 1 Point Value = 2 Point Value = 3 Point Value = 5 Age 41-60 Minor surgery BMI > 25 kg/m2 Swollen legs Varicose veins or History of unexplained or recurrent spontaneous Oral contraceptives or hormone replacement Sepsis (< 1 month) Serious lung disease, including pneumonia (< 1 month) Abnormal pulmonary function Acute myocardial infarction Congestive heart failure (< 1 month) History of inflammatory bowel disease Medical patient at bed rest Age 61-74 Arthroscopic surgery Major open surgery (> 45 min) Laparoscopic surgery (> 45 min) Malignancy Confined to bed (> 72 hours) Immobilizing plaster cast Central venous access Age >= 75 History of VTE Family history of VTE Factor V Leiden Prothrombin 60002C Lupus anticoagulant Anticardiolipin antibodies Elevated serum homocysteine Heparin-induced thrombocytopenia Other congenital or acquired thrombophilia Stroke (< 1 month) Elective arthroplasty Hip, pelvis, or leg fracture Acute spinal cord injury (< 1 month) Prophylaxis Regimen Total Risk Factor Score Risk Level Prophylaxis Regimen 0-1 Low Early ambulation 2 Moderate Order ONE of the following: *Sequential Compression Device (SCD) *Heparin 5000 units SQ BID 3-4 Higher Order ONE of the following medications: *Heparin 5000 units SQ TID *Enoxaparin/Lovenox 40 mg SQ daily (WT < 150 kg, CrCl > 30 mL/min) *Enoxaparin/Lovenox 30 mg SQ daily (WT < 150 kg, CrCl > 10-29 mL/min) *Enoxaparin/Lovenox 30 mg SQ BID (WT < 150 kg, CrCl > 30 mL/min) AND/OR *Sequential Compression Device (SCD) 5 or more Highest Order ONE of the following medications: *Heparin 5000 units SQ TID (Preferred with Epidurals) *Enoxaparin/Lovenox 40 mg SQ daily (WT < 150 kg, CrCl > 30 mL/min) *Enoxaparin/Lovenox 30 mg SQ daily (WT < 150 kg, CrCl > 10-29 mL/min) *Enoxaparin/Lovenox 30 mg SQ BID (WT < 150 kg, CrCl > 30 mL/min) AND *Sequential Compression Device (SCD) Assessment and Plan Assessment and Plan Acute obstructing nephrolithiasis Patient progressed to abdominal pain, right flank pain with history of kidney stones CT of the abdomen indicated 5 x 7 mm distal right ureteral calculus causing severe hydronephrosis and hydroureter. The stone is 1 cm above the right UVJ. Left side is unremarkable. Consult urology for recommendations, discussed with urology who indicated patient will need be transferred to the [facility] for cystoscopy this afternoon Increased pain control Strain all urine Chest pain Patient with increased risk factors to include family history of heart disease, tobacco use Patient has been ruled out for acute coronary event with serial cardiac enzymes that are negative EKGs reviewed by myself that shows normal sinus rhythm without any changes Myocardial perfusion study indicated normal examination, no signs of ischemia , ejection fraction 54%, low risk CT pulmonary angiogram do not indicate any PE. Does show Continue aspirin, nitroglycerin as needed, morphine for pain control Elevated blood pressure No history of hypertension, likely secondary to pain Clonidine and Vasotec as needed DVT prevention Low risk, early ambulation Sequential compression devices Gaetano Lisa Jul 17, 2017 13:11
[2017-07-17 13:47] LABS: TROPONIN I LESS THAN 0.02 NG/ML (0.02-0.05)
[2017-07-17 15:00] LABS: BILIRUBIN, URINE NEG (NEG); BLOOD, URINE LARGE (NEG); GLUCOSE,URINE NEG (NEG); KETONE, URINE 15 mg/dL (NEG); NITRITE,URINE NEG (NEG); URINE COLOR YELLOW (YELLW/STRAW); URINE LEUKOCYTE ESTERASE NEG (NEG)
[2017-07-17] MEDS ORDERED: REGADENOSON INJ 0.4 MG/5 ML SYR IV ONE (15:18)
[2017-07-17 15:31] LABS: RBC, URINE 15-19 /hpf (0-3); SQUAMOUS EPITHELIAL CELL URINE 0-5 /hpf (0-5)
[2017-07-17] MEDS ORDERED: IOHEXOL 350 MG/ML 10 ML VIAL (for RAD DIAG) IVCONTRAST ONE (16:21)
--- NOTE | 2017-07-17 16:31 | RADRPT ---
EXAM DATE/TIME: 07/17/2017 16:11 [facility] COMPARISON: No previous studies available for comparison. INDICATIONS : Chest pain and short of breath. IV CONTRAST: 65 cc Omnipaque 350 (iohexol) IV RADIATION DOSE: 19.18 CTDIvol (mGy) MEDICAL HISTORY : Hypertension. SURGICAL HISTORY : Hysterectomy. Discectomy. ENCOUNTER: Initial ACUITY: 1 day PAIN SCALE: 10/10 LOCATION: chest TECHNIQUE: Volumetric scanning of the chest was performed using a pulmonary embolism protocol MIP images were re constructed. Using automated exposure control and adjustment of the mA and/or kV according to patien t size, radiation dose was kept as low as reasonably achievable to obtain optimal diagnostic quality images. DICOM format image data is available electronically for review and comparison. Follow-up recommendations for detected pulmonary nodules are based at a minimum on nodule size and pa tient risk factors according to Fleischner Society Guidelines. FINDINGS: PULMONARY ARTERIES: No filling defects are seen in the pulmonary arteries through the segmental level. LUNGS: There are 2, 3-4 mm nodules in the right middle lobe which are probably post inflammatory. There is a granulomatous type calcification in the same general vicinity. Lungs are otherwise clear. PLEURAE: There is no pleural thickening or pleural effusion. MEDIASTINUM: There is good visualization of the great vessels of the middle mediastinum. No evidence of mediastin al or hilar adenopathy/mass. MUSCULOSKELETAL: Within normal limits for patient age. MISCELLANEOUS: The visualized upper abdominal organs demonstrate no acute abnormality. CONCLUSION: 1. No pulmonary embolus or acute infiltrate to explain current clinical symptoms. 2. 2, 3-4 mm nodules in the right middle lobe with a punctate granulomatous type calcification in the same general vicinity. These are probably all post inflammatory. If there is no smoking history, no followup necessary. Otherwise, would recommend a repeat noncontrasted CT scan of the chest in one yea r to ensure stability. Patrick Singleton MD on July 17, 2017 at 16:25 Board Certified Radiologist. This report was verified electronically.
--- NOTE | 2017-07-17 16:32 | RADRPT ---
EXAM DATE/TIME: 07/17/2017 16:11 [facility] COMPARISON: No previous studies available for comparison. INDICATIONS : Right abdominal pain. Evaluate for renal stone. ORAL CONTRAST: No oral contrast ingested. RADIATION DOSE: 22.33 CTDIvol (mGy) MEDICAL HISTORY : Hypertension. SURGICAL HISTORY : Hysterectomy. Discectomy. ENCOUNTER: Initial ACUITY: 1 day PAIN SCALE: 10/10 LOCATION: flank TECHNIQUE: Volumetric scanning of the abdomen and pelvis was performed. Using automated exposure control and ad justment of the mA and/or kV according to patient size, radiation dose was kept as low as reasonably achievable to obtain optimal diagnostic quality images. DICOM format image data is available electro nically for review and comparison. FINDINGS: LOWER LUNGS: The visualized lower lungs are clear. LIVER: Homogeneous density without lesion. There is no dilation of the biliary tree. No calcified gallston es. SPLEEN: Normal size without lesion. PANCREAS: Within normal limits. KIDNEYS: There is severe hydronephrosis of the right kidney and a dilated hydroureter all the way down to just above the right UVJ. There is a 5 by 7 millimeter calcification in the very distal ureter 1 cm above the right UVJ. No other calcifications identified on the right side. The left kidney is unremarkable . ADRENAL GLANDS: Within normal limits. VASCULAR: There is no aortic aneurysm. BOWEL/MESENTERY: The stomach, small bowel, and colon demonstrate no acute abnormality. There is no free intraperitone al air or fluid. ABDOMINAL WALL: Within normal limits. RETROPERITONEUM: There is no lymphadenopathy. BLADDER: No wall thickening or mass. REPRODUCTIVE: Within normal limits. INGUINAL: There is no lymphadenopathy or hernia. MUSCULOSKELETAL: Within normal limits for patient age. CONCLUSION: 5 x 7 mm distal right ureteral calculus causing severe hydronephrosis and hydroureter. The stone is 1 cm above the right UVJ. Left side is unremarkable. Eddy Richardson MD on July 17, 2017 at 16:28 Board Certified Radiologist. This report was verified electronically.
--- NOTE | 2017-07-17 16:44 | RADRPT ---
EXAM DATE/TIME: 07/17/2017 15:12 [facility] COMPARISON: No previous studies available for comparison. INDICATIONS : Midchest pain. Angina. DOSE: 35 mCi Tc99m Myoview at stress. 11 mCi Tc99m Myoview at rest. 0.4 mg Lexiscan STRESS SYMPTOMS: Short of breath. EJECTION FRACTION: 54% MEDICAL HISTORY : Hypertension. Smoker. SURGICAL HISTORY : Hysterectomy. ENCOUNTER: Initial ACUITY: 1 day PAIN SCALE: 10/10 LOCATION: Midsternal chest TECHNIQUE: The patient underwent pharmacologic stress with infusion of prescribed dose. Continuous ECG tracing was monitored during stress. Gated SPECT imaging was performed after stress and conventional SPECT i maging was performed at rest. The examination was performed on a SPECT/CT scanner, both attenuation and non-corrected datasets were reviewed. FINDINGS: DISTRIBUTION: The maximum perfused segment at stress is in the mid septal wall. PERFUSION STUDY: The pattern of perfusion at stress is within normal limits. GATED STUDY: There is intact wall motion and thickening without hypokinetic or dyskinetic segments. CONCLUSION: Normal examination. RISK CATEGORY: Low (<1% Annual Mortality Rate) Eddy Richardson MD on July 17, 2017 at 16:40 Board Certified Radiologist. This report was verified electronically.
[2017-07-17] MEDS ORDERED: ACETAMINOPHEN/HYDROcodone 325 MG/10 MG TAB PO PRN (16:45)
[2017-07-17] MEDS ORDERED: NS + KCL 20 MEQ INJ 1,000 ML IV SCH (16:45)
[2017-07-17] MEDS ORDERED: HYDROmorphone HCL PF 1 MG/ML VIAL IV PUSH PRN (16:45)
[2017-07-17 17:21] LABS: TROPONIN I LESS THAN 0.02 NG/ML (0.02-0.05)
[2017-07-17] MEDS ORDERED: HYDROmorphone HCL PF 2 MG/ML VIAL IV PUSH PRN (17:30)
[2017-07-17] MEDS ORDERED: SUGAMMADEX SODIUM 200 MG/2 ML VIAL IV PUSH ONE (19:56)
--- NOTE | 2017-07-17 20:04 | PD.OP ---
Operative Report Date of Surgery: Jul 17, 2017 Preoperative Diagnosis: Right hydronephrosis with right ureteral calculus and obstruction Postoperative Diagnosis: Same Procedure: Cystoscopy, right retrograde pyelogram, right double-J stent insertion Anesthesia: MARIA E Surgeon: Smooth Fernandez Stripper Latex(s): None Resident Surgeon: None Operation and Findings: 46-year-old female presented with abdominal pain with right-sided flank pain as well as chest pain. CT scan demonstrated a 7 mm distal right ureteral calculus causing severe hydroureteronephrosis with obstruction. Decision was made to bring the patient to the operating room to undergo cystoscopy with right retrograde pyelogram study with right double-J stent insertion. Risk and benefits were discussed preoperatively and the patient was willing to proceed. The patient was brought to the operating room and identified by myself and Alessandra Hogan. She is placed in dorsal lithotomy position, prepped and draped in sterile fashion, received preprocedure antibiotics and general endotracheal tube anesthesia was administered. 22 Spanish cystoscope was inserted the bladder padron cystoscopy did not reveal any abnormalities. The right ureteral orifice was identified and a 500 and catheter was inserted in the right ureteral orifice and retrograde pyelogram was performed. Hydroureteralnephrosis on the right side was identified. A filling defect was noted in the distal right UVJ area. A 0.35 sensor wire was then passed to the open-ended catheter and left in good position. A 6 Spanish 24 cm right double-J stent was passed up into the kidney with a good curl in the bladder as well as a good curl in the kidney. The bladder was evacuated she tolerated the procedure well. She will follow-up in the office in a few weeks and obtain a scan prior to her visit determine the location of the stone and to determine an intervention strategy. Smooth Fernandez DO Jul 17, 2017 20:04
[2017-07-17] MEDS ORDERED: DO NOT ADM ANY ANTICOAGULANT DRUGS PRN (20:16)
[2017-07-17] MEDS ORDERED: ceFAZolin 2 GM PREMIX 50 ML IV ONE (20:22)
--- NOTE | 2017-07-17 20:24 | MB ---
cc: Smooth Fernandez DO DATE: 07/17/2017 This is a 46-year-old female who presented to the [place] [facility] emergency room with complaints of chest pain. She stated it started last night and has been persistent. She also had some lower abdominal pain. CT scan was then performed at [facility] demonstrating a 7 mm distal right ureteral calculus with severe right-sided hydroureteronephrosis. She denies any prior history of stones. PAST MEDICAL HISTORY: Denies any significant medical history. PAST SURGICAL HISTORY: Noted for partial hysterectomy in 1997. MEDICATIONS: Refer to the chart. ALLERGIES: SHE HAS NO KNOWN DRUG ALLERGIES. SOCIAL HISTORY: She smokes almost a pack a day since age 15. Drinks alcohol twice a year. Denies any drug use. FAMILY HISTORY: Noted for heart disease on her father's side. CURRENT REVIEW OF SYSTEMS: Denies fever or chills. Denies nausea or vomiting. Notes chest pain and right-sided abdominal pain and some right-sided flank pain. Denies gait disturbances, bleeding disorder, or skin lesions, psychiatric problems, heat or cold intolerance, diarrhea or constipation. The remaining review of systems were reviewed and were negative. PHYSICAL EXAMINATION: VITAL SIGNS: Today, temperature is 98.2, heart rate 63, respiratory rate 18, 155/83 is her blood pressure. She is 98% on room air. GENERAL: She is an obese 46-year-old female in no acute distress. HEENT: Normocephalic, atraumatic. Pupils equal, round, regular, reactive to light. Extraocular movements intact. NECK: Supple. HEART: Regular rate and rhythm. LUNGS: Clear. ABDOMEN: Soft. There is right-sided CVA tenderness noted. There is some tenderness in the right lower quadrant region also noted with palpation. GENITOURINARY: Shows normal female external genitalia. EXTREMITIES: Show no cyanosis, clubbing, or edema. NEUROLOGIC: Cranial nerves 2-12 are intact. LABORATORY DATA: White count is noted to be 11.1, hemoglobin 14.4, hematocrit 43.1, platelet count of 333. Sodium 142, potassium ____, chloride 110, CO2 25.6, BUN of 13, creatinine 0.9, glucose of 129. PT is 9.3. INR is 0.9, PTT is 27.2. Urinalysis shows large blood, 15-19 red cells are noted, leukocyte esterase is negative, nitrite is also negative. CT scan imaging demonstrates a 5 x 7 mm right distal ureteral calculus causing severe hydroureteronephrosis. ASSESSMENT: A 46-year-old female with a right ureteral calculus causing severe right-sided hydroureteronephrosis. Recommend cystoscopy, right double-J stent insertion. Continue n.p.o. Risks and benefits were discussed and the patient is willing to proceed. DO NYDIA BanksT/rt , 08:08 PM , 08:24 PM
[2017-07-17] MEDS ORDERED: SODIUM CHLORIDE 0.9% FLUSH 10 ML FLUSH IV FLUSH SCH (21:00)
--- NOTE | 2017-07-17 21:03 | HHI.PR ---
Addendum to Inpatient Note Addendum Reason: Additional Documentation Additional Information Patient seen and examined in PACU, s/p renal stent placement. She has been cleared by standpoint for discharge. She is A&O x 3 and states he pain is increasingly better, denies any chest pain. She wishes to go home tonight. She has her daughter at home that is willing to come get her and take her for her prescriptions that were given by Dr. Fernandez. She is tolerating ice chips and denies any nausea or vomiting. She has been ruled out for ACS and states the pain has went away since surgery. I feel the patient is stable enough to be discharged and follow up with Dr. Fernandez in 2 weeks. She is to strain urine for any stones, and refrain from the high amount of diet soda she drinks. Diet as tolerated. I will give her a work note to return on Saturday. Take prescriptions as prescribed. Patient verbalizes understanding of instructions. Discharge patient to home Condition on discharge: Much Improved Regular Diet as tolerated Ad Melissa activity Rx written: per Dr. Fernandez Follow-up with primary care physician in 2-3 days, in 2 weeks. Lety Friedman Jul 17, 2017 21:03
--- NOTE | 2017-07-17 21:04 | HHI.DCPOC ---
Discharge Care Plan Diagnosis: (1) Kidney stone (2) Hydronephrosis Goals to Promote Your Health * To prevent worsening of your condition and complications * To maintain your health at the optimal level Directions to Meet Your Goals Take your medications as prescribed Follow your dietary instruction Follow activity as directed Keep your appointments as scheduled Take your immunizations and boosters as scheduled If your symptoms worsen call your PCP, if no PCP go to Urgent Care Center or Emergency Room Smoking is Dangerous to Your Health. Avoid second hand smoke Call the 24-hour hour crisis hotline for domestic abuse at Lety Friedman Jul 17, 2017 21:04
[2017-07-18] MEDS ORDERED: ASPIRIN 325 MG TAB PO SCH (09:00)
--- NOTE | 2017-07-18 12:34 | TR ---
Date Performed: 07/17/2017 Time Performed: 15:43:25 DOCTOR: Quinton Mendez DRUG LIST: CLINICAL HISTORY: REASON FOR TEST: REASON FOR ENDING: OBSERVATION: CONCLUSION: COMMENTS: Lexiscan stress test was performed under standard four minute protocol. Radionuclide was injected one minute prior to ending the test. No electrocardiographic abormalities were present t o suggest ischemia. Nuclear imaging and interpretation are pending.
--- NOTE | 2017-07-18 12:37 | EKG ---
Date Performed: 07/17/2017 Time Performed: 16:41:59 PTAGE: 46 years EKG: Sinus rhythm NORMAL ECG PREVIOUS TRACING : 07/17/2017 12.30 Since previous tracing, no significant change noted DOCTOR: Quinton Mendez Interpretating Date/Time 07/18/2017 12:36:13
--- NOTE | 2017-07-18 12:40 | EKG ---
Date Performed: 07/17/2017 Time Performed: 12:30:12 PTAGE: 46 years EKG: Sinus rhythm NORMAL ECG PREVIOUS TRACING : 07/17/2017 09.27 DOCTOR: Quinton Mendez Interpretating Date/Time 07/18/2017 12:38:23
== END 2017-07-17 21:25 | disposition home or self-care (01) ==
LOC: PHED 09:20 → PHEDA 12:13 → PH3B 13:05 → N07B 17:53
PROVIDERS: ADMIT Hospitalist; ATTEND Hospitalist
DX: N13.2 Hydronephrosis with renal and ureteral calculous obstruction (principal); R07.89 Other chest pain; R03.0 Elevated blood-pressure reading, without diagnosis of hypertension; R10.30 Lower abdominal pain, unspecified; R06.02 Shortness of breath; G43.909 Migraine, unspecified, not intractable, without status migrainosus; Z87.442 Personal history of urinary calculi; Z82.49 Family history of ischemic heart disease and other diseases of the circulatory system; F17.200 Nicotine dependence, unspecified, uncomplicated; I20.9 Angina pectoris, unspecified
CPT/HCPCS: 00910; 52332; 71045; 71275; 74176; 74420; 78452; 80048; 81001; 82550; 83735; 84484; 85025; 85379; 85610; 85730; 93005; 93017; 96374; 96375; 99285; A9502; C1769; C2617; G0378; J0690; J1100; J1170; J2270; J2405; J2785; J3010; J3480; Q9967

== ENCOUNTER 2017-07-30 13:53 | Emergency (ER) | payer OTHER ==
[2017-07-30] MEDS ORDERED: SODIUM CHLORIDE 0.9% FLUSH 10 ML FLUSH IV FLUSH (16:15)
[2017-07-30] MEDS: MORPHINE SULFATE 4 MG/ML INJ IV PUSH (16:21)
[2017-07-30] MEDS: KETOROLAC TROMETHAMINE 30 MG/ML (IVP) VIAL IVP (16:21)
[2017-07-30] MEDS: SODIUM CHLOR 0.9% 1000 ML INJ 1,000 ML IV (16:21)
[2017-07-30] MEDS: ONDANSETRON HCL 4 MG/2 ML VIAL IVP (16:22)
[2017-07-30 17:34] LABS: AUTOMATED NEUTROPHIL # 9.2 TH/MM3 (1.8-7.7); BASOPHIL # 0.1 TH/MM3 (0-0.2); BASOPHIL % 0.5 % (0.0-2.0); EOSINOPHIL # 0.2 TH/MM3 (0-0.4); EOSINOPHIL % 1.8 % (0.0-4.0); HEMATOCRIT 39.7 % (35.0-46.0); HEMO FLAGS DIFF FINAL; HEMOGLOBIN 13.5 GM/DL (11.6-15.3); LYMPH % 20.4 % (9.0-44.0); LYMPHOCYTE # 2.6 TH/MM3 (1.0-4.8); MEAN CELL VOLUME 84.5 FL (80.0-100.0); MEAN CORPUSCULAR HEMOGLOBIN 28.6 PG (27.0-34.0); MEAN CORPUSCULAR HGB CONC 33.9 % (32.0-36.0); MEAN PLATELET VOLUME 7.6 FL (7.0-11.0); MONO % 4.4 % (0.0-8.0); MONOCYTE # 0.6 TH/MM3 (0-0.9); NEUT % 72.9 % (16.0-70.0); PLATELET COUNT 356 TH/MM3 (150-450); RED CELL DISTRIBUTION WIDTH 14.1 % (11.6-17.2); WHITE BLOOD COUNT 12.6 TH/MM3 (4.0-11.0)
[2017-07-30 17:50] LABS: ALT (GPT) 40 U/L (10-53)
[2017-07-30 17:53] LABS: ALKALINE PHOSPHATASE 71 U/L (45-117); TOTAL BILIRUBIN ADULT 0.2 MG/DL (0.2-1.0); TOTAL PROTEIN 6.7 GM/DL (6.4-8.2)
[2017-07-30 18:06] LABS: ALBUMIN 3.3 GM/DL (3.4-5.0); ANION GAP 6 MEQ/L (5-15); AST (GOT) 30 U/L (15-37); BICARBONATE 26.6 MEQ/L (21.0-32.0); BLOOD UREA NITROGEN 13 MG/DL (7-18); CALCIUM 8.6 MG/DL (8.5-10.1); CHLORIDE 108 MEQ/L (98-107); CREATININE 0.92 MG/DL (0.50-1.00); GLOMERULAR FILTRATION RATE 65 ML/MIN (>89); GLUCOSE,RANDOM 93 MG/DL (74-106); LIPASE 147 U/L (73-393); SODIUM (NA) 141 MEQ/L (136-145)
[2017-07-30 18:07] LABS: POTASSIUM 4.4 MEQ/L (3.5-5.1)
[2017-07-30 18:13] LABS: BACTERIA, URINE OCC /hpf; BILIRUBIN, URINE NEG (NEG); BLOOD, URINE LARGE (NEG); COMMENT (UR) CULTURE INDICATED; CULTURE IF INDICATED CULTURE INDICATED; GLUCOSE,URINE NEG (NEG); KETONE, URINE NEG (NEG); NITRITE,URINE NEG (NEG); SQUAMOUS EPITHELIAL CELL URINE 13 /hpf (0-5); URINE COLOR YELLOW (YELLW/STRAW); URINE LEUKOCYTE ESTERASE SMALL (NEG)
[2017-07-30] MEDS: NITROFURANTOIN MONOHYD MACROCR 100 MG CAP PO (18:36)
== END 2017-07-30 18:40 | disposition home or self-care (01) ==
LOC: NEPD 18:40
DX: N39.0 Urinary tract infection, site not specified (principal); F17.210 Nicotine dependence, cigarettes, uncomplicated; N20.1 Calculus of ureter
CPT/HCPCS: 74176; 80053; 81001; 83690; 85025; 87086; 96361; 96374; 96375; 99284-25

== ENCOUNTER 2017-09-29 17:28 | Inpatient (IN) ==
[2017-09-29] MEDS ORDERED: Morphine Inj 4 MG/ML Vial IV.PUSH ONE ×2 (18:04→21:33)
[2017-09-29] MEDS ORDERED: Sod Chloride 0.9% Inj 1,000 ML IV.SIG ONE (18:04)
[2017-09-29] MEDS ORDERED: Ketorolac Inj 30 MG/ML (IVP) Vial IV.PUSH ONE (18:04)
--- NOTE | 2017-09-29 18:48 | ED ---
HPI General Chief complaint: Abdominal Pain Stated complaint: Poss Kidney Stone Time Seen by Provider: 09/29/17 17:55 Source: patient Mode of arrival: ambulatory Limitations: no limitations History of Present Illness HPI narrative: Patient is a 46-year-old female with stone, comes in complaining of right flank pain. She had a ureteral stent placed in July, and says that she had it removed a month ago because it was causing her just as much pain as the stone itself. She says she is doing okay until today when she developed severe pain and then nausea and vomiting. She denies any urinary symptoms. She denies fever chills. She did not take anything for pain at home prior to coming in. Her urologist is Dr. Fernandez. Severity is moderate. Treatments prior to arrival: none Related Data Home Medications Medication Instructions Recorded Confirmed No Known Home Medications 09/29/17 09/29/17 Allergies Allergy/AdvReac Type Severity Reaction Status Date / Time No Known Allergies Allergy Unknown Uncoded 07/30/17 14:22 Review of Systems Except as stated in HPI: all other systems reviewed are negative Constitutional Denies chills and Denies fever(s) Cardiovascular Denies chest pain Respiratory Denies dyspnea Gastrointestinal Reports abdominal pain, Reports nausea and Reports vomiting Genitourinary Denies hematuria, Denies urinary frequency and Reports flank pain Musculoskeletal Denies myalgias and Denies arthralgias Integumentary/Breasts Denies change in pigmentation Neurologic Denies focal weakness [facility] Medical History Medical History Kidney stones (Acute) Surgical History Surgical History History of renal stent (Acute) S/P partial hysterectomy (Acute) Social History Social History Substance History: No History of Abuse Second Hand Smoke Exposure: Yes Smoking Status: Current every day smoker Tobacco Type: Cigarettes How Often Do You Have a Drink Containing Alcohol: Monthly or less Recent Travel in [facility] within the Last 8 Weeks: No Recent Out of Country Travel within the Last 8 Weeks: No Immunization History Tetanus Immunization: >5 Years Hx Influenza Vaccine This Season: No Exam Narrative Exam Narrative: GENERAL: Awake and alert, in mild distress due to pain. SKIN: Focused skin assessment warm/dry. No wounds or signs of infection. HEAD: Atraumatic. Normocephalic. EYES: Pupils equal and round. No scleral icterus. No injection or drainage. ENT: Mucous membranes pink and moist. NECK: Trachea midline. No JVD. CARDIOVASCULAR: Regular rate and rhythm. No murmur appreciated. RESPIRATORY: No accessory muscle use. Clear to auscultation. Breath sounds equal bilaterally. GASTROINTESTINAL: Abdomen soft, non-tender, nondistended. Right CVA tenderness. MUSCULOSKELETAL: No obvious deformities. No clubbing. No cyanosis. No edema. NEUROLOGICAL: Awake and alert. No obvious cranial nerve deficits. Motor grossly within normal limits. Normal speech. PSYCHIATRIC: Appropriate mood and affect; insight and judgment normal. Course Hospital Course: IV established, labs sent. Given IVF, Morphine, Toradol, Zofran. CT abd/pelvis ordered. Initial Documented Vital Signs Temperature 98.0 F 09/29/17 17:30 Pulse Rate 93 H 09/29/17 17:30 Respiratory Rate 20 09/29/17 17:30 Blood Pressure 199/110 H 09/29/17 17:30 Pulse Oximetry 96 09/29/17 17:30 Last Documented Vital Signs Temperature 98.5 F 09/30/17 07:29 Pulse Rate 87 09/30/17 07:29 Respiratory Rate 16 09/30/17 07:29 Blood Pressure 116/60 09/30/17 07:29 Pulse Oximetry 94 L 09/30/17 07:29 Medical Decision Making [facility] Narrative Medical decision making narrative: Patient is a 46 year old female who comes in complaining of right flank pain with nausea and vomiting. Exam shows right CVA tenderness. IV established, labs sent. Given IVF, Toradol, Morphine, Zofran. CT abd/pelvis ordered. Signed out to oncoming physician to follow up testing and disposition the patient. Differential Diagnosis Differential Diagnosis: UTI vs renal stone vs pyelonephritis Medical Records Medical records reviewed: Yes I reviewed the patient's medical records. Lab Data Lab results reviewed: Yes I reviewed the patient's lab results. Result diagrams: 09/29/17 17:50 09/29/17 17:50 Lab Results 09/29/17 09/29/17 09/29/17 Range/Units 17:50 17:50 21:00 WBC 14.5 H (4.0-11.0) th/mm3 RBC 5.34 H (4.00-5.30) mil/mm3 Hgb 14.8 (11.6-15.3) gm/dL Hct 44.6 (35.0-46.0) % MCV 83.5 (80.0-100.0) fL MCH 27.8 (27.0-34.0) pg MCHC 33.3 (32.0-36.0) % RDW 14.0 (11.6-17.2) % Plt Count 329 (150-450) th/mm3 MPV 8.7 (7.0-11.0) fL Neut % (Auto) 74.8 H (16.0-70.0) % Lymph % (Auto) 19.2 (9.0-44.0) % [place] % (Auto) 4.4 (0.0-8.0) % Eos % (Auto) 1.2 (0.0-4.0) % Baso % (Auto) 0.4 (0.0-2.0) % Neut # (Auto) 10.8 H (1.8-7.7) th/mm3 Lymph # (Auto) 2.8 (1.0-4.8) th/mm3 [place] # (Auto) 0.6 (0.0-0.9) th/mm3 Eos # (Auto) 0.2 (0.0-0.4) th/mm3 Baso # (Auto) 0.1 (0.0-0.2) th/mm3 WBC Differential . Differential Comment Auto diff final Sodium 141 (136-145) meq/L Potassium 3.9 (3.5-5.1) meq/L Chloride 108 H (98-107) meq/L Carbon Dioxide 22.2 (21.0-32.0) meq/L Anion Gap 11 (5-15) meq/L BUN 14 (7-18) mg/dL Creatinine 0.99 (0.50-1.00) mg/dL Estimated GFR 60 L (>89) mL/min Random Glucose 128 H (74-106) mg/dL Calcium 9.1 (8.5-10.1) mg/dL Total Bilirubin 0.2 (0.2-1.0) mg/dL AST 14 L (15-37) U/L ALT 22 (10-53) U/L Alkaline Phosphatase 85 (45-117) U/L Total Protein 7.0 (6.4-8.2) g/dL Albumin 3.5 (3.4-5.0) g/dL Urine Color Yellow (Yellw/Straw) Urine Clarity Cloudy H (Clear) Urine pH 5.0 (5.0-8.5) Ur Specific [place] 1.020 (1.002-1.035) Urine Protein 100 H (Neg-Trace) mg/dL Urine Glucose (UA) Negative (Negative) mg/dL Urine Ketones Negative (Negative) mg/dL Urine Occult Blood Moderate H (Negative) Urine Nitrate Positive H (Negative) Urine Bilirubin Negative (Negative) Urine Urobilinogen Less than 2 (Less than 2) mg/dL Ur Leukocyte Esterase Large H (Negative) Urine RBC 27 H (0-3) /hpf Urine WBC (0-5) /hpf Urine WBC Clumps Few H (None) Ur Squamous Epith Cells 32 (0-5) /hpf Urine Bacteria Few H (None) /hpf Urine Mucus Moderate H (Occasional) /lpf Micro UA Comment Culture indicated Urine Culture Comments Culture indicated Imaging Data Radiologist's impression: ITS Impressions Abdomen/Pelvis CT 09/29/17 18:04 CONCLUSION: 1. Right-sided moderate to severe hydronephrosis and ureteral dilatation above an 8 mm calculus in the distal ureter proximal to the bladder. 2. 6.5 cm right adnexal mass unchanged from previous 2 CTs. This could represent an ovarian cyst. This could be confirmed sonographically. Discharge Plan Discharge Disposition Patient Disposition: 30 Still Patient Physicians Team ED Provider: Sherry Barba Primary Care Provider: Maximiliano Gabriel Attending Provider: Hugo Marr Other Providers: Home Ramirez Discharge Interventions Interventions: ED Discharge Assessment Last Done: 09/30/17 01:30 Vital Signs Last Done: 09/30/17 00:06 Status ED Status: Left Department Discharge Information Discharge Date/Time: 09/30/17 01:00
[2017-09-29 19:11] LABS: Baso # (Auto) 0.1 th/mm3 (0.0-0.2); Baso % (Auto) 0.4 % (0.0-2.0); Eos # (Auto) 0.2 th/mm3 (0.0-0.4); Eos % (Auto) 1.2 % (0.0-4.0); Hematocrit 44.6 % (35.0-46.0); Hemoglobin 14.8 gm/dL (11.6-15.3); Lymph # (Auto) 2.8 th/mm3 (1.0-4.8); Lymph % (Auto) 19.2 % (9.0-44.0); Mean Corpuscular HGB Conc 33.3 % (32.0-36.0); Mean Corpuscular Hemoglobin 27.8 pg (27.0-34.0); Mean Corpuscular Volume 83.5 fL (80.0-100.0); Mean Platelet Volume 8.7 fL (7.0-11.0); Mono # (Auto) 0.6 th/mm3 (0.0-0.9); Mono % (Auto) 4.4 % (0.0-8.0); Neut # (Auto) 10.8 th/mm3 (1.8-7.7); Neut % (Auto) 74.8 % (16.0-70.0); Platelet Count 329 th/mm3 (150-450); Red Blood Count 5.34 mil/mm3 (4.00-5.30); White Blood Count 14.5 th/mm3 (4.0-11.0)
[2017-09-29 19:44] LABS: Albumin 3.5 g/dL (3.4-5.0); Anion Gap 11 meq/L (5-15); Aspartate Aminotransferase 14 U/L (15-37); Blood Urea Nitrogen 14 mg/dL (7-18); Calcium 9.1 mg/dL (8.5-10.1); Carbon Dioxide 22.2 meq/L (21.0-32.0); Chloride 108 meq/L (98-107); Glomerular Filtration Rate 60 mL/min (>89); Glucose,Random 128 mg/dL (74-106); Potassium 3.9 meq/L (3.5-5.1); Sodium 141 meq/L (136-145)
[2017-09-29 19:46] LABS: Alanine Aminotransferase 22 U/L (10-53)
[2017-09-29 19:47] LABS: Alkaline Phosphatase 85 U/L (45-117)
--- NOTE | 2017-09-29 20:24 | CT ---
EXAM DATE: 09/29/2017 8:05 PM EDT AGE/SEX: 46 years / Female INDICATIONS: Right abdomen pain. CLINICAL DATA: This is the patient's initial encounter. Patient reports that signs and symptoms have been present for 1 day and indicates a pain score of 5/10. MEDICAL/SURGICAL HISTORY: Renal calculi. . renal stent. RADIATION DOSE: 17.47 CTDI (mGy) COMPARISON: [facility], CT PULMONARY ANGIOGRAM, 07/17/2017. . TECHNIQUE: Multiple contiguous axial images were obtained through the abdomen. Images were obtained using multiple row detector helical technique. Using automated exposure control and adjustment of the mA and/or kV according to patient size, radiation dose was kept as low as reasonably achievable to o btain optimal diagnostic quality images. DICOM format image data is available electronically for rev iew and comparison. FINDINGS: Lung bases are clear. No acute findings in the liver, spleen, adrenals, left kidney or pancreas. Ther e is moderate to severe right-sided hydronephrosis and ureteral dilatation above a 8 mm calculus in t he distal right ureter just above the bladder. No left-sided calculi or obstructive uropathy. Previou s right ureteral stent has been removed. There is a 6.5 cm right adnexal mass, possibly a complex ovarian cyst which is stable since June. No other pelvic masses. No free fluid or free air. No bowel obstruction. CONCLUSION: 1. Right-sided moderate to severe hydronephrosis and ureteral dilatation above an 8 mm calculus in t he distal ureter proximal to the bladder. 2. 6.5 cm right adnexal mass unchanged from previous 2 CTs. This could represent an ovarian cyst. Th is could be confirmed sonographically. Electronically signed by: Grover Vo MD 09/29/2017 8:23 PM EDT
[2017-09-29 21:47] LABS: Bacteria,Urine Few /hpf; Bilirubin,Urine Negative (Negative); Clarity,Urine Cloudy (Clear); Color,Urine Yellow (Yellw/Straw); Glucose,Urine (UA) Negative (Negative); Leukocyte Esterase,Urine Large (Negative); Mucus,Urine Moderate /lpf (Occasional); Nitrite,Urine Positive (Negative); Squamous Epithelial Cell,Urine 32 /hpf (0-5)
[2017-09-30] MEDS ORDERED: Ciprofloxacin 400 MG/200 ML 400 MG/200 ML PIGGYBACK IV.SIG ONE (00:06)
[2017-09-30] MEDS ORDERED: Temazepam 15 MG Capsule PO PRN (00:34)
[2017-09-30] MEDS ORDERED: Bisacodyl 10 MG Supp RECTAL PRN (00:34)
--- NOTE | 2017-09-30 00:37 | P.HP ---
History of Present Illness Service: [facility] Primary Care Physician: Maximiliano Gabriel MD Chief Complaint: Right flank pain History of Present Illness: 46-year-old female with a past medical history significant for right sided ureteral stone status post stent placement and removal in July presents the emergency department with an acute flare of right CVA/flank pain. The patient reports that she was eating lunch when the pain "came out of nowhere." She reports that it has persisted and is unbearable. She was unable to tolerate her stent so it was removed by her urologist who stated that she may pass the stone on her own. CT of the abdomen/pelvis shows a right ureteral calculus with moderate to severe hydronephrosis. The patient denies any chest pain or shortness of breath. Right lower quadrant abdominal pain. No nausea/vomiting. No fever/chills. No dysuria. Inpatient Certification: I certify that the inpatient services were ordered in accordance with Medicare regulations governing the order. This includes certification that hospital inpatient services are reasonable and necessary and in the case of services not specified as inpatient-only under 42 CFR 419.22(n), that they are appropriately provided as inpatient services in accordance to with the 2-midnight benchmark under 43 CFR 412.3(e) Review of Systems All other systems reviewed negative except as stated in HPI [facility] - History History Provided By: Patient, Family Member - Medical History Medical History: Medical History (Last Updated 09/29/17 @ 18:01 by [place]) Kidney stones - Surgical History Surgical History: Surgical History (Last Updated 09/29/17 @ 18:01 by [place]) History of renal stent S/P partial hysterectomy - Tobacco History Second Hand Smoke Exposure: No Tobacco Use In Past 30 Days: Yes Smoking Status: Current every day smoker Tobacco Type: Cigarettes - Alcohol History How Often Do You Have a Drink Containing Alcohol: 2 to 4 times a month - Substance Use History Substance History: No History of Abuse - Travel History Recent Travel in the [place] Within the Last 8 Weeks: No Recent Travel Out of the Country Within the Last 8 Weeks: No - Immunization History Tetanus Immunization: >5 Years Hx Influenza Vaccine This Season: No Medications and Allergies Active Medications: Active Medications Ciprofloxacin/Dextrose (Cipro 400 Mg/200 Ml Inj) 400 mg in 200 mls @ 200 mls/ hr IV.SIG ONCE ONE Stop: 09/30/17 01:05 Last Admin: 09/30/17 00:15 Dose: 200 mls/hr Sodium Chloride (Ns Flush) 2 ml IV.FLUSH PRN PRN PRN Reason: FLUSH AFTER USING IV ACCESS Last Admin: 09/29/17 18:25 Dose: 2 ml Allergies Allergy/AdvReac Type Severity Reaction Status Date / Time No Known Allergies Allergy Unknown Uncoded 07/30/17 14:22 Home Medications Medication Instructions Recorded Confirmed Type No Known Home Medications 09/29/17 09/29/17 History Exam Vital signs: Vital Signs 09/29/17 17:30 09/29/17 17:55 09/29/17 19:10 Temperature 98.0 F Pulse Rate 93 H 74 75 Respiratory Rate 20 16 16 Blood Pressure 199/110 H 161/77 H 141/75 H Pulse Oximetry 96 94 L 98 09/29/17 21:57 09/29/17 21:58 09/30/17 00:06 Temperature Pulse Rate 75 Respiratory Rate 16 16 Blood Pressure 153/76 H 161/74 H Pulse Oximetry 97 97 98 Intake & Output 09/29/17 09/29/17 09/30/17 06:59 18:59 06:59 Weight 114.305 kg Narrative: Gen.: No acute distress Head: Normocephalic. Atraumatic. EENT: Pupils equal round and reactive to light. Nose without drainage. Airway intact. Throat without injection. Cardiovascular: Regular rate and rhythm. No murmurs, rubs or gallops. Respiratory: Lungs clear to auscultation bilaterally. No wheezes or rhonchi. Abdomen: Soft, nontender, nondistended. No peritoneal signs. : Right CVA tenderness Musculoskeletal: No gross deformities. No edema. Skin: No obvious rashes or erythema. Neuro: Sensory and motor grossly intact. Cranial nerves II through XII grossly intact. Psych: Appropriate mood and affect Results - Labs CBC & Chem 7: 09/29/17 17:50 09/29/17 17:50 Labs: Laboratory Results - last 24 hr 09/29/17 09/29/17 09/29/17 17:50 17:50 21:00 WBC 14.5 H RBC 5.34 H Hgb 14.8 Hct 44.6 MCV 83.5 MCH 27.8 MCHC 33.3 RDW 14.0 Plt Count 329 MPV 8.7 Neut % (Auto) 74.8 H Lymph % (Auto) 19.2 [place] % (Auto) 4.4 Eos % (Auto) 1.2 Baso % (Auto) 0.4 Neut # (Auto) 10.8 H Lymph # (Auto) 2.8 [place] # (Auto) 0.6 Eos # (Auto) 0.2 Baso # (Auto) 0.1 WBC Differential . Differential Comment Auto diff final Sodium 141 Potassium 3.9 Chloride 108 H Carbon Dioxide 22.2 Anion Gap 11 BUN 14 Creatinine 0.99 Estimated GFR 60 L Random Glucose 128 H Calcium 9.1 Total Bilirubin 0.2 AST 14 L ALT 22 Alkaline Phosphatase 85 Total Protein 7.0 Albumin 3.5 Urine Color Yellow Urine Clarity Cloudy H Urine pH 5.0 Ur Specific [place] 1.020 Urine Protein 100 H Urine Glucose (UA) Negative Urine Ketones Negative Urine Occult Blood Moderate H Urine Nitrate Positive H Urine Bilirubin Negative Urine Urobilinogen Less than 2 Ur Leukocyte Esterase Large H Urine RBC 27 H Urine WBC Urine WBC Clumps Few H Ur Squamous Epith Cells 32 Urine Bacteria Few H Urine Mucus Moderate H Micro UA Comment Culture indicated Urine Culture Comments Culture indicated - Imaging Impressions Abdomen/Pelvis CT 09/29/17 18:04 CONCLUSION: 1. Right-sided moderate to severe hydronephrosis and ureteral dilatation above an 8 mm calculus in the distal ureter proximal to the bladder. 2. 6.5 cm right adnexal mass unchanged from previous 2 CTs. This could represent an ovarian cyst. This could be confirmed sonographically. Caprini VTE Risk Assessment Caprini VTE Risk Assessment: No/Low Risk (score <= 1) Caprini Risk Assessment Model: Point Value = 1 Point Value = 2 Point Value = 3 Point Value = 5 Age 41-60 Minor surgery BMI > 25 kg/m2 Swollen legs Varicose veins or History of unexplained or recurrent spontaneous Oral contraceptives or hormone replacement Sepsis (< 1 month) Serious lung disease, including pneumonia (< 1 month) Abnormal pulmonary function Acute myocardial infarction Congestive heart failure (< 1 month) History of inflammatory bowel disease Medical patient at bed rest Age 61-74 Arthroscopic surgery Major open surgery (> 45 min) Laparoscopic surgery (> 45 min) Malignancy Confined to bed (> 72 hours) Immobilizing plaster cast Central venous access Age >= 75 History of VTE Family history of VTE Factor V Leiden Prothrombin [id number] Lupus anticoagulant Anticardiolipin antibodies Elevated serum homocysteine Heparin-induced thrombocytopenia Other congenital or acquired thrombophilia Stroke (< 1 month) Elective arthroplasty Hip, pelvis, or leg fracture Acute spinal cord injury (< 1 month) Prophylaxis Regimen: Total Risk Factor Score Risk Level Prophylaxis Regimen 0-1 Low Early ambulation 2 Moderate Order ONE of the following: *Sequential Compression Device (SCD) *Heparin 5000 units SQ BID 3-4 Higher Order ONE of the following medications: *Heparin 5000 units SQ TID *Enoxaparin/Lovenox 40 mg SQ daily (WT < 150 kg, CrCl > 30 mL/min) *Enoxaparin/Lovenox 30 mg SQ daily (WT < 150 kg, CrCl > 10-29 mL/min) *Enoxaparin/Lovenox 30 mg SQ BID (WT < 150 kg, CrCl > 30 mL/min) AND/OR *Sequential Compression Device (SCD) 5 or more Highest Order ONE of the following medications: *Heparin 5000 units SQ TID (Preferred with Epidurals) *Enoxaparin/Lovenox 40 mg SQ daily (WT < 150 kg, CrCl > 30 mL/min) *Enoxaparin/Lovenox 30 mg SQ daily (WT < 150 kg, CrCl > 10-29 mL/min) *Enoxaparin/Lovenox 30 mg SQ BID (WT < 150 kg, CrCl > 30 mL/min) AND *Sequential Compression Device (SCD) Assessment and Plan - Plan Assessment/plan: 1. Ureteral stent/UTI CT of the abdomen/pelvis shows an 8 mm calculus in the distal ureter proximal to the bladder with moderate to severe right-sided hydronephrosis Neurology consulted, appreciate assistance Dilaudid for pain UA consistent with urinary tract infection Urine culture pending Rocephin FEN N.p.o. Electrolytes: Monitor and replete as needed NS at 1 25 cc/hour
[2017-09-30] MEDS: HYDROmorphone PF Inj 2 MG/ML Vial IV.PUSH PRN ×4 (00:50→15:07)
[2017-09-30] MEDS: Sod Chloride 0.9% Inj 1,000 ML IV.CONT SCH ×2 (02:10→16:59)
[2017-09-30] MEDS: Senna/Docusate Sodium 8.6/50 MG Tablet PO SCH ×2 (08:22→21:25)
--- NOTE | 2017-09-30 13:11 | P.CONURO ---
History of Present Illness Consult date: 09/30/17 Requesting Physician: Darlene Lowery Reason for Consult: Obstructing right ureteral calculus Primary Care Provider: Maximiliano Gabriel MD Family Provider: Maximiliano Gabriel MD Chief Complaint: Right flank pain History of Present Illness: 46-year-old female with history of a obstructing right ureteral calculus who is being managed by my associate Dr. Fernandez. Patient underwent right stent removal in the office in July of this year and was advised to return to the emergency room if the stone did not pass spontaneously and she developed worsening right flank pain. Patient presents now with worsening right flank pain. A CT scan study was performed that once again demonstrated an 8 mm right distal ureteral calculus causing significant right hydroureteronephrosis. A urology consult was placed for further management. Patient has been afebrile. She denies gross hematuria. Review of Systems Constitutional: Denies fever(s) Cardiovascular: Denies chest pain Gastrointestinal: Reports abdominal pain (Right-sided) Genitourinary: Denies blood in urine Musculoskeletal: Reports back pain (Right flank) PMFSH - History History Provided By: Patient - Medical History Medical History: Medical History (Last Updated 09/29/17 @ 18:01 by Vusay) Kidney stones - Surgical History Surgical History: Surgical History (Last Updated 09/29/17 @ 18:01 by Vusay) History of renal stent S/P partial hysterectomy - Tobacco History Second Hand Smoke Exposure: Yes Tobacco Use In Past 30 Days: Yes Smoking Status: Current every day smoker Tobacco Type: Cigarettes - Alcohol History How Often Do You Have a Drink Containing Alcohol: Monthly or less - Substance Use History Substance History: No History of Abuse - Travel History Recent Travel in the [facility] Within the Last 8 Weeks: No Recent Travel Out of the Country Within the Last 8 Weeks: No - Immunization History Tetanus Immunization: >5 Years Hx Influenza Vaccine This Season: No Medications and Allergies Active Medications: Active Medications Acetaminophen (Tylenol) 650 mg PO Q4H PRN PRN Reason: Temp > 100.4 Al Hydroxide/Mg Hydroxide (Milk Of Magnesia Liq) 30 ml PO Q12H PRN PRN Reason: Mild Constipation Bisacodyl (Dulcolax Supp) 10 mg RECTAL DAILY PRN PRN Reason: SEVERE CONSITIPATION Hydromorphone HCl (Dilaudid Pf Inj) 1 mg IV.PUSH Q4H PRN PRN Reason: pain 6-10 Last Admin: 09/30/17 09:42 Dose: 1 mg Ceftriaxone Sodium 1,000 mg/ (Sodium Chloride) 100 mls @ 200 mls/hr IV.SIG Q24H [facility] Last Infusion: 09/30/17 09:46 Dose: Infused Sodium Chloride (Ns Inj) 1,000 mls @ 100 mls/hr IV.CONT .Q10H [facility] Last Infusion: 09/30/17 11:49 Dose: Infused Lactulose (Lactulose Liq) 30 ml PO DAILY PRN PRN Reason: SEVERE CONSITIPATION Ondansetron HCl (Zofran Odt) 4 mg PO Q6H PRN PRN Reason: NAUSEA OR VOMITING Last Admin: 09/30/17 08:22 Dose: 4 mg Senna/Docusate Sodium (Coral-Colace) 1 tab PO BID [facility] Last Admin: 09/30/17 08:22 Dose: 1 tab Sennosides (Senokot) 17.2 mg PO Q12H PRN PRN Reason: Moderate Constipation Sodium Chloride (Ns Flush) 2 ml IV.FLUSH PRN PRN PRN Reason: FLUSH AFTER USING IV ACCESS Last Admin: 09/30/17 08:22 Dose: 2 ml Temazepam (Restoril) 15 mg PO HS PRN PRN Reason: INSOMNIA Allergies Allergy/AdvReac Type Severity Reaction Status Date / Time No Known Allergies Allergy Unknown Uncoded 07/30/17 14:22 Home Medications Medication Instructions Recorded Confirmed Type No Known Home Medications 09/29/17 09/29/17 History Physical Exam Vital Signs - 24 hr 09/29/17 17:30 09/29/17 17:55 09/29/17 19:10 Temperature 98.0 F Pulse Rate 93 H 74 75 Respiratory Rate 20 16 16 Blood Pressure 199/110 H 161/77 H 141/75 H Pulse Oximetry 96 94 L 98 09/29/17 21:57 09/29/17 21:58 09/30/17 00:06 Temperature Pulse Rate 75 Respiratory Rate 16 16 Blood Pressure 153/76 H 161/74 H Pulse Oximetry 97 97 98 09/30/17 04:00 09/30/17 06:21 09/30/17 07:29 Temperature 99.1 F 98.5 F Pulse Rate 103 H 87 Respiratory Rate 16 17 16 Blood Pressure 137/76 116/60 Pulse Oximetry 97 94 L 09/30/17 12:00 Temperature 100.5 F H Pulse Rate 94 H Respiratory Rate 16 Blood Pressure 123/57 L Pulse Oximetry 93 L Physical Exam: GENERAL: This is a well-nourished, well-developed patient, in no apparent distress. SKIN: No rashes, ecchymoses or lesions. Cool and dry. HEAD: Atraumatic. Normocephalic. No temporal or scalp tenderness. EYES: Pupils equal round and reactive. Extraocular motions intact. No scleral icterus. No injection or drainage. ENT: Nose without bleeding, purulent drainage or septal hematoma. Throat without erythema, tonsillar hypertrophy or exudate. Uvula midline. Airway patent. NECK: Trachea midline. No JVD or lymphadenopathy. Supple, nontender, no meningeal signs. CARDIOVASCULAR: Regular rate and rhythm without murmurs, gallops, or rubs. RESPIRATORY: Clear to auscultation. Breath sounds equal bilaterally. No wheezes , rales, or rhonchi. GASTROINTESTINAL: Abdomen soft, non-tender, nondistended. No hepato-splenomegaly , or palpable masses. No guarding. GENITOURINARY: No CVA tenderness, bladder not distended MUSCULOSKELETAL: Extremities without clubbing, cyanosis, or edema. No joint tenderness, effusion, or edema noted. No calf tenderness. Negative Homans sign bilaterally. NEUROLOGICAL: Awake and alert. Cranial nerves II through XII intact. Motor and sensory grossly within normal limits. Five out of 5 muscle strength in all muscle groups. Normal speech. Laboratory Results - last 24 hr 09/29/17 09/29/17 09/29/17 17:50 17:50 21:00 WBC 14.5 H RBC 5.34 H Hgb 14.8 Hct 44.6 MCV 83.5 MCH 27.8 MCHC 33.3 RDW 14.0 Plt Count 329 MPV 8.7 Neut % (Auto) 74.8 H Lymph % (Auto) 19.2 [place] % (Auto) 4.4 Eos % (Auto) 1.2 Baso % (Auto) 0.4 Neut # (Auto) 10.8 H Lymph # (Auto) 2.8 [place] # (Auto) 0.6 Eos # (Auto) 0.2 Baso # (Auto) 0.1 WBC Differential . Differential Comment Auto diff final Sodium 141 Potassium 3.9 Chloride 108 H Carbon Dioxide 22.2 Anion Gap 11 BUN 14 Creatinine 0.99 Estimated GFR 60 L Random Glucose 128 H Calcium 9.1 Total Bilirubin 0.2 AST 14 L ALT 22 Alkaline Phosphatase 85 Total Protein 7.0 Albumin 3.5 Urine Color Yellow Urine Clarity Cloudy H Urine pH 5.0 Ur Specific [place] 1.020 Urine Protein 100 H Urine Glucose (UA) Negative Urine Ketones Negative Urine Occult Blood Moderate H Urine Nitrate Positive H Urine Bilirubin Negative Urine Urobilinogen Less than 2 Ur Leukocyte Esterase Large H Urine RBC 27 H Urine WBC Urine WBC Clumps Few H Ur Squamous Epith Cells 32 Urine Bacteria Few H Urine Mucus Moderate H Micro UA Comment Culture indicated Urine Culture Comments Culture indicated Result Diagrams: 09/29/17 17:50 09/29/17 17:50 Imaging: ITS Impressions Abdomen/Pelvis CT 09/29/17 18:04 CONCLUSION: 1. Right-sided moderate to severe hydronephrosis and ureteral dilatation above an 8 mm calculus in the distal ureter proximal to the bladder. 2. 6.5 cm right adnexal mass unchanged from previous 2 CTs. This could represent an ovarian cyst. This could be confirmed sonographically. Assessment and Plan - Assessment (1) Ureteral calculus, right Code(s): N20.1 - Calculus of ureter Status: Acute - Plan 1. discussed case with patient's established urologist Dr. Fernandez who will place the patient on the OR schedule this Saturday for extracorporeal shockwave lithotripsy. 2. Continue with analgesic support 3. N.p.o. after midnight Saturday night
[2017-09-30] MEDS: Acetaminophen 325 MG Tablet PO PRN (16:59)
[2017-10-01] MEDS: Sod Chloride 0.9% Inj 1,000 ML IV.CONT SCH ×3 (00:01→17:07)
[2017-10-01] MEDS: Acetaminophen 325 MG Tablet PO PRN ×5 (00:01→21:34)
[2017-10-01] MEDS: Senna/Docusate Sodium 8.6/50 MG Tablet PO SCH ×2 (09:08→21:17)
[2017-10-01 09:14] LABS: Baso % (Auto) 0.4 % (0.0-2.0); Eos % (Auto) 0.3 % (0.0-4.0); Hematocrit 38.1 % (35.0-46.0); Hemoglobin 12.8 gm/dL (11.6-15.3); Lymph # (Auto) 0.9 th/mm3 (1.0-4.8); Lymph % (Auto) 11.6 % (9.0-44.0); Mean Corpuscular HGB Conc 33.7 % (32.0-36.0); Mean Corpuscular Hemoglobin 28.3 pg (27.0-34.0); Mean Corpuscular Volume 84.1 fL (80.0-100.0); Mean Platelet Volume 8.4 fL (7.0-11.0); Mono # (Auto) 0.4 th/mm3 (0.0-0.9); Mono % (Auto) 5.3 % (0.0-8.0); Neut # (Auto) 6.1 th/mm3 (1.8-7.7); Neut % (Auto) 82.4 % (16.0-70.0); Platelet Count 210 th/mm3 (150-450); Red Blood Count 4.52 mil/mm3 (4.00-5.30); Red Cell Distribution Width 13.9 % (11.6-17.2); White Blood Count 7.4 th/mm3 (4.0-11.0)
[2017-10-01 09:34] LABS: Anion Gap 9 meq/L (5-15); Blood Urea Nitrogen 8 mg/dL (7-18); Calcium 8.4 mg/dL (8.5-10.1); Carbon Dioxide 22.6 meq/L (21.0-32.0); Chloride 110 meq/L (98-107); Glomerular Filtration Rate Greater Than 89 mL/min (>89); Glucose,Random 88 mg/dL (74-106); Potassium 3.8 meq/L (3.5-5.1); Sodium 142 meq/L (136-145)
--- NOTE | 2017-10-01 13:29 | P.PNIM ---
Subjective Interval history: Patient is having fevers. Blood cultures were drawn. States the pain is slightly improved. Physical Exam Vital signs: Vital Signs 09/30/17 16:00 09/30/17 20:00 09/30/17 20:14 Temperature 101.9 F H 99.3 F Pulse Rate 103 H 106 H Respiratory Rate 18 16 Blood Pressure 136/63 136/78 Pulse Oximetry 93 L 95 96 09/30/17 23:42 10/01/17 04:00 10/01/17 08:00 Temperature 102.2 F H 98.3 F 97.5 F L Pulse Rate 104 H 90 79 Respiratory Rate 16 16 20 Blood Pressure 126/63 119/71 124/74 Pulse Oximetry 93 L 95 96 10/01/17 12:00 Temperature 99.3 F Pulse Rate 75 Respiratory Rate 20 Blood Pressure 138/81 Pulse Oximetry 92 L Intake & Output 09/30/17 10/01/17 10/01/17 18:59 06:59 18:59 Intake Total 1500 / 1500 800 / 800 1000 / 1000 Balance 1500 / 1500 800 / 800 1000 / 1000 Intake: IV 1100 / 1100 800 / 800 1000 / 1000 NS Inj 1,000 ML @ 100 mls/hr IV 1000 / 1000 800 / 800 1000 / 1000 .CONT .Q10H [facility] Rx#:[id number] Rocephin Inj 1,000 MG In NS Inj 100 / 100 100 ML @ 200 mls/hr IV.SIG Q24H [facility] Rx#:[id number] Oral 400 / 400 Other: # Voids 3 Date of Last Bowel Movement 09/29/17 Narrative: GENERAL: Obese female in no apparent distress. CARDIOVASCULAR: Normal rate and regular rhythm without murmurs, gallops, or rubs. RESPIRATORY: Good respiratory efforts. Breath sounds equal and clear to auscultation bilaterally. GASTROINTESTINAL: Abdomen soft, tender to palpation, most notable in the right lower quadrant. Normal and active bowel sounds. No rebound tenderness. MUSCULOSKELETAL: Extremities without cyanosis, or edema. NEURO: Alert & Oriented x4 to person, place, time, situation. Moves all ext x4 PSYCH: Appropriate mood and affect. Results - Labs CBC & Chem 7: 10/01/17 08:17 10/01/17 08:17 Laboratory Results - last 24 hr 09/29/17 10/01/17 10/01/17 21:00 08:17 08:17 WBC 7.4 RBC 4.52 Hgb 12.8 D Hct 38.1 MCV 84.1 MCH 28.3 MCHC 33.7 RDW 13.9 Plt Count 210 D MPV 8.4 Neut % (Auto) 82.4 H Lymph % (Auto) 11.6 [place] % (Auto) 5.3 Eos % (Auto) 0.3 Baso % (Auto) 0.4 Neut # (Auto) 6.1 Lymph # (Auto) 0.9 L [place] # (Auto) 0.4 Eos # (Auto) 0.0 Baso # (Auto) 0.0 WBC Differential . Differential Comment Auto diff final Sodium 142 Potassium 3.8 Chloride 110 H Carbon Dioxide 22.6 Anion Gap 9 BUN 8 Creatinine 0.62 Estimated GFR Greater than 89 Random Glucose 88 Calcium 8.4 L Urine Color Yellow Urine Clarity Cloudy H Urine pH 5.0 Ur Specific [place] 1.020 Urine Protein 100 H Urine Glucose (UA) Negative Urine Ketones Negative Urine Occult Blood Moderate H Urine Nitrate Positive H Urine Bilirubin Negative Urine Urobilinogen Less than 2 Ur Leukocyte Esterase Large H Urine RBC 27 H Urine WBC Urine WBC Clumps Few H Ur Squamous Epith Cells 32 Urine Bacteria Few H Urine Mucus Moderate H Micro UA Comment Culture indicated Urine Culture Comments Culture indicated Microbiology 09/29/17 21:00 Clean Catch Urine Urine Culture - Final Enterobacter aerogenes Klebsiella pneumoniae Assessment and Plan - Assessment (1) Ureteral calculus, right Code(s): N20.1 - Calculus of ureter Status: Acute Plan: Appreciate urology following. Plan for OR in the morning for lithotripsy and stone retraction. Continue supportive care with pain control, IV fluid. (2) Complicated UTI (urinary tract infection) Code(s): N39.0 - Urinary tract infection, site not specified Status: Acute Plan: Infected stones. Urine culture growing Klebsiella and enterococcus. Both sensitive to Rocephin. Continue IV Rocephin for now. Still having fevers. Follow blood cultures.
--- NOTE | 2017-10-01 13:45 | P.PNURO ---
Subjective Patient symptoms today: Pt seen and examined. Pain has improved. Objective Vital Signs: Vital Signs 09/30/17 16:00 09/30/17 20:00 09/30/17 20:14 Temperature 101.9 F H 99.3 F Pulse Rate 103 H 106 H Respiratory Rate 18 16 Blood Pressure 136/63 136/78 Pulse Oximetry 93 L 95 96 09/30/17 23:42 10/01/17 04:00 10/01/17 08:00 Temperature 102.2 F H 98.3 F 97.5 F L Pulse Rate 104 H 90 79 Respiratory Rate 16 16 20 Blood Pressure 126/63 119/71 124/74 Pulse Oximetry 93 L 95 96 10/01/17 12:00 Temperature 99.3 F Pulse Rate 75 Respiratory Rate 20 Blood Pressure 138/81 Pulse Oximetry 92 L Intake & Output 09/30/17 10/01/17 10/01/17 18:59 06:59 18:59 Intake Total 1500 / 1500 800 / 800 1000 / 1000 Balance 1500 / 1500 800 / 800 1000 / 1000 Intake: IV 1100 / 1100 800 / 800 1000 / 1000 NS Inj 1,000 ML @ 100 mls/hr IV 1000 / 1000 800 / 800 1000 / 1000 .CONT .Q10H [facility] Rx#:[id number] Rocephin Inj 1,000 MG In NS Inj 100 / 100 100 ML @ 200 mls/hr IV.SIG Q24H [facility] Rx#:[id number] Oral 400 / 400 Other: # Voids 3 Date of Last Bowel Movement 09/29/17 Result Diagrams: 10/01/17 08:17 10/01/17 08:17 Medications and IVs: Active Medications Generic Name Dose Route Start Last Admin Trade Name Freq PRN Reason Stop Dose Admin Acetaminophen 650 mg 09/30/17 00:34 10/01/17 11:50 Tylenol PO 650 mg Q4H PRN Administration Temp > 100.4 Al Hydroxide/Mg Hydroxide 30 ml 09/30/17 00:34 Milk Of Magnesia Liq PO Q12H PRN Mild Constipation Bisacodyl 10 mg 09/30/17 00:34 Dulcolax Supp RECTAL DAILY PRN SEVERE CONSITIPATION Hydromorphone HCl 1 mg 09/30/17 00:33 09/30/17 15:07 Dilaudid Pf Inj IV.PUSH 1 mg Q4H PRN Administration pain 6-10 Ceftriaxone Sodium 1,000 mg/ 100 mls @ 200 mls/hr 09/30/17 09:00 10/01/17 09: 07 Sodium Chloride IV.SIG 200 mls/hr Q24H [facility] Administration Sodium Chloride 1,000 mls @ 100 mls/hr 09/30/17 00:45 10/01/17 09:09 Ns Inj IV.CONT 100 mls/hr .Q10H [facility] Administration Lactulose 30 ml 09/30/17 00:34 Lactulose Liq PO DAILY PRN SEVERE CONSITIPATION Ondansetron HCl 4 mg 09/30/17 00:34 09/30/17 15:08 Zofran Odt PO 4 mg Q6H PRN Administration NAUSEA OR VOMITING Senna/Docusate Sodium 1 tab 09/30/17 09:00 10/01/17 09:08 Coral-Colace PO 1 tab BID [facility] Administration Sennosides 17.2 mg 09/30/17 00:34 Senokot PO Q12H PRN Moderate Constipation Sodium Chloride 2 ml 09/29/17 18:04 09/30/17 08:22 Ns Flush IV.FLUSH 2 ml PRN PRN Administration FLUSH AFTER USING IV ACCESS Temazepam 15 mg 09/30/17 00:34 Restoril PO HS PRN INSOMNIA Objective Remarks: Abd:softl,nt,nd Mild right CVAT Assessment and Plan - Assessment (1) Ureteral calculus, right Code(s): N20.1 - Calculus of ureter Status: Acute - Plan 1. discussed case with patient's established urologist Dr. Fernandez who will place the patient on the OR schedule this Saturday for extracorporeal shockwave lithotripsy. 2. Continue with analgesic support 3. N.p.o. after midnight Saturday night 10/01 46 y.o female with 7mm right distal ureteral stone NPO after KN Cysto; right URS with laser litho and stone extraction in AM.
[2017-10-02] MEDS: Sod Chloride 0.9% Inj 1,000 ML IV.CONT SCH ×2 (03:02→11:32)
[2017-10-02] MEDS ORDERED: Metoprolol Tartrate 25 MG Tablet PO SCH ×2 (03:30→14:00)
[2017-10-02] MEDS ORDERED: Chlorhexidine Gluconate 2% 1 Pack (2 Cloths) TOPICAL SCH ×2 (03:30→14:00)
[2017-10-02] MEDS ORDERED: Sodium Chlor 0.9% Inj 500 ML IV.SIG SCH ×2 (04:00→14:00)
[2017-10-02] MEDS: Senna/Docusate Sodium 8.6/50 MG Tablet PO SCH (11:33)
--- NOTE | 2017-10-02 11:57 | P.PNIM ---
Subjective Interval history: Patient reports she is feeling slightly better this morning. No fevers. Still having right lower quadrant/flank pain. Physical Exam Vital signs: Vital Signs 10/01/17 12:00 10/01/17 16:00 10/01/17 20:00 Temperature 99.3 F 99.2 F 98.6 F Pulse Rate 75 85 75 Respiratory Rate 20 20 19 Blood Pressure 138/81 152/75 H 145/81 H Pulse Oximetry 92 L 95 96 10/02/17 00:00 10/02/17 04:00 10/02/17 08:00 Temperature 98.2 F 98.9 F 98.7 F Pulse Rate 72 84 84 Respiratory Rate 18 16 16 Blood Pressure 138/73 149/72 H 160/86 H Pulse Oximetry 96 97 97 Intake & Output 10/01/17 10/02/17 10/02/17 18:59 06:59 18:59 Intake Total 3460 / 3460 1100 / 1100 Output Total / 6 Balance 3454 / 3454 1100 / 1100 Intake: IV 2000 / 2000 1100 / 1100 NS Inj 1,000 ML @ 100 mls/hr IV 2000 / 2000 1000 / 1000 .CONT .Q10H [facility] Rx#:[id number] Rocephin Inj 1,000 MG In NS Inj 100 / 100 100 ML @ 200 mls/hr IV.SIG Q24H [facility] Rx#:[id number] Oral 1460 / 1460 Output: Urine Other: Date of Last Bowel Movement 10/01/17 Narrative: GENERAL: Obese female in no apparent distress. CARDIOVASCULAR: Normal rate and regular rhythm without murmurs, gallops, or rubs. RESPIRATORY: Good respiratory efforts. Breath sounds equal and clear to auscultation bilaterally. GASTROINTESTINAL: Abdomen soft, tender to palpation, most notable in the right lower quadrant. Normal and active bowel sounds. No rebound tenderness. MUSCULOSKELETAL: Extremities without cyanosis, or edema. Results - Labs CBC & Chem 7: 10/01/17 08:17 10/01/17 08:17 Microbiology 10/01/17 13:30 Blood - Peripheral Aerobic Blood Culture - Preliminary No growth in 1 day 10/01/17 13:30 Blood - Peripheral Anaerobic Blood Culture - Preliminary No growth in 1 day 09/29/17 21:00 Clean Catch Urine Urine Culture - Final Enterobacter aerogenes Klebsiella pneumoniae Assessment and Plan - Assessment (1) Ureteral calculus, right Code(s): N20.1 - Calculus of ureter Status: Acute Plan: Appreciate urology following. Plan for OR today for lithotripsy and stone retraction. Continue supportive care with pain control, IV fluid. (2) Complicated UTI (urinary tract infection) Code(s): N39.0 - Urinary tract infection, site not specified Status: Acute Plan: Infected stones. Urine culture growing Klebsiella and enterococcus. Both sensitive to Rocephin. Continue IV Rocephin for now. Follow blood cultures.
[2017-10-02] MEDS ORDERED: Iohexol 300 MG/ML 50 ML Vial (for Rad Diag) IVCONTRAST ONE (12:00)
[2017-10-02] MEDS ORDERED: Sugammadex Inj 200 MG/2 ML Vial IV.PUSH ONE (14:21)
--- NOTE | 2017-10-02 14:32 | P.OP ---
Date of procedure: 10/02/17 Procedure: Right ureteroscopy with right retrograde pyelogram Anesthesia: GETA Surgeon: Smooth Fernandez DO Estimated blood loss (mL): 0 IV fluids (mL): 1,000 Operation and Findings: 46-year-old female with history of right-sided nephrolithiasis. Patient presented to the emergency room 2 days ago with a 8 mm right distal UVJ stone with hydronephrosis and flank pain. Decision made to bring the patient to the operating room to undergo right ureteroscopy laser lithotripsy and stone extraction. Risk and benefits were discussed preoperatively she is willing to proceed. Patient was brought to the operating room and identified by myself and Alessandra Hogan. She is placed in a dorsal lithotomy position, prepped and draped in sterile fashion, received preprocedure antibiotics and general endotracheal tube anesthesia was administered. The short rigid ureteroscope was passed into the bladder and up into the distal right ureter. No stone fragments were identified. A retrograde pyelogram was then performed demonstrating no filling defects within the ureter or kidney. The scope was removed and the bladder was evacuated. She was extubated and awoken and transferred recovery in stable condition.
[2017-10-02] MEDS ORDERED: fentaNYL Citrate Inj 100 MCG/2 ML Ampul ONE (15:04)
[2017-10-02] MEDS ORDERED: Lidocaine PF 1% Inj 5 ML Syringe INFILTRATN ONE (18:05)
== END 2017-10-02 18:06 | disposition home or self-care (01) ==
LOC: NEPC 17:28 → NEDA 09-30 00:21 → NEPFCDU 09-30 01:00
PROVIDERS: ADMIT Family Medicine; ATTEND Family Medicine